=== PATIENT | female | born 1965 | race Caucasian/White ===

== ENCOUNTER 2019-09-05 12:13 | Emergency (ER) | payer MEDICARE, MEDICAID, SELFPAY ==
--- NOTE | ~2019-09-05 | XR_ITS ---
XR chest 1V portable 09/05/2019 12:57 Indication: Redness of breath. Atrial fibrillation. Procedure: AP portable chest Comparison: No prior studies for comparison. Findings: Bibasilar atelectasis/scarring. No acute focal pneumonia, edema, pleural effusion or pneumo thorax. Borderline heart size. No acute osseous abnormality. Impression: 1: Bibasilar atelectasis/scarring. Reviewed, dictated and finalized at location B. ONAL INJURY LEGAL ASSISTANT Impression: 1: Bibasilar atelectasis/scarring.
--- NOTE | 2019-09-05 12:30 | ECG_ITS ---
Measurements Intervals [place] Rate: 74 P: VT: 0 QRS: 40 QRSD: 84 T: 9 QT: 325 QTc: 363 Interpretive Statements ATRIAL FIBRILLATION LOW QRS VOLTAGE IN PRECORDIAL LEADS BASELINE ARTIFACT- II, III, AVR, AVF, V1, V6 ABNORMAL ECG Electronically Signed On 09-05-2019 12:51:17 DISTRIBUTOR PUBLICATIONS by Milan Lopez D.O.
[2019-09-05 12:37] VITALS: BP 135/65; PULSE 83; RESP 20; TEMP 37.2; O2SAT 100
--- NOTE | 2019-09-05 12:47 | ED.GENADULT ---
HPI - General Adult General Chief complaint: Arrhythmia/Palpitations Stated complaint: sob afib Time Seen by Provider: 09/05/19 12:40 Source: patient Mode of arrival: ambulatory Limitations: other ( came by feels safe because of general weakness) History of Present Illness HPI narrative: Courtney is a 53-year-old female patient. She presents to the emergency room with a caregiver. Courtney apparently lives in [place], [place] . her presenting complaint is that her pulse ox was low on a home pulse oximeter. She has a home health nurse who checks her. She was told to go to the ER to have it checked out. In the ER her pulse ox is 100% on room air. Courtney has a complicated medical history. She has history of chronic atrial fibrillation. Her PCP is Dr Marie in [place]. she states that she was in [place] about 10 days ago. She was transferred to [facility] from there. She states that she was there for 1 week. Her Coumadin dosing was adjusted there. She has a slight headache. No history of nausea vomiting. She denies any chest pain at this time. Her pulse rate is 74 at this time. Her blood pressure is 135/65 mmHg her respirations are 20 per minute temperature is 99? F . She denies any cough. There is no history of vomiting or diarrhea. She has no abdominal pain. 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) Location: head ( has mild headache.) Radiation: non-radiation Severity: mild Quality: sharp Pain Consistency: intermittent Relieving factors: other ( Does not have much pain now ) Exacerbating factors: none Associated symptoms: other ( please see HPI narrative) Treatments prior to arrival: none Related Data Home Medications Medication Instructions Recorded Confirmed atorvastatin 40 mg PO DAILY 09/05/19 09/05/19 diazepam 1 mg PO TID 09/05/19 09/05/19 digoxin [Digox] 250 mcg PO DAILY 09/05/19 09/05/19 docusate sodium 100 mg PO DAILY 09/05/19 09/05/19 ergocalciferol (vitamin D2) 50,000 unit PO WEEKLY 09/05/19 09/05/19 hydrocodone-acetaminophen [[place]] 1 tablet PO Q6H PRN 09/05/19 09/05/19 linaclotide 72 mcg PO DAILY 09/05/19 09/05/19 lorazepam 1 mg PO DAILY PRN 09/05/19 09/05/19 pregabalin 300 mg PO BID 09/05/19 09/05/19 tizanidine 2 mg PO Q6-8H 09/05/19 09/05/19 trazodone 50 mg PO HS PRN 09/05/19 09/05/19 varenicline 1 mg PO DAILY 09/05/19 09/05/19 warfarin [Coumadin] 4 mg PO [id number] 09/05/19 09/05/19 warfarin [Coumadin] 5 mg PO QMWF 09/05/19 09/05/19 Allergies Allergy/AdvReac Type Severity Reaction Status Date / Time amoxicillin Allergy Hives Verified 09/05/19 13:25 azithromycin Allergy Hives Verified 09/05/19 13:25 Cephalosporins Allergy Hives Verified 09/05/19 13:25 cyclobenzaprine Allergy Hives Verified 09/05/19 13:25 ketorolac Allergy Hives Verified 09/05/19 13:25 metronidazole Allergy Hives Verified 09/05/19 13:25 morphine Allergy Hives Verified 09/05/19 13:25 Sulfa (Sulfonamide Allergy Hives Verified 09/05/19 13:25 Antibiotics) Tetracyclines Allergy Hives Verified 09/05/19 13:25 tramadol Allergy Hives Verified 09/05/19 13:25 citalopram [From Celexa] AdvReac Unknown Verified 09/05/19 13:25 fluoxetine AdvReac Unknown Verified 09/05/19 13:25 sertraline AdvReac Unknown Verified 09/05/19 13:25 Review of Systems Review of Systems: All systems reviewed & are unremarkable except as noted in HPI and below Constitutional: Constitutional: Reports as per HPI, Denies chills, Denies fever(s) and Reports weakness Eyes: Eyes: Reports as per HPI, Reports no additional eye complaints and Denies change in vision ENT: Reports system reviewed and no additional complaints, except as documented, Denies vertigo, Denies dizziness, Denies epistaxis and Denies sore throat Cardiovascular: Cardiovascular: Reports as per HPI, Reports no additional cardiovascular complaints, Denies chest pain and Denies radiating jaw, neck or arm pain Comments: has history of chronic atrial fibrillation. She is on chronic warfa
[2019-09-05 13:23] LABS: Base Excess ABG -0.3 mmol/L (0-2); Modified Allen's Test Pass; Oxygen Content ABG 14.4 %vol (16.0-22.0); Oxygen Saturation ABG 96.6 % (95-97); Oxyhemoglobin 94.7 % (94-100); PCO2 ABG 33.1 mmHg (35-45); PO2 ABG 87.2 mmHg (80-90); Site Drawn LEFT RADIAL; Total Hemoglobin 10.7 g/dL; pH ABG 7.46 (7.35-7.45)
[2019-09-05 13:24] LABS: Device ROOM AIR
[2019-09-05 13:31] LABS: INR 1.2; Partial Thromboplastin Time 27.2 SEC (22.3-31.6); Prothrombin Time 12.7 Seconds (9.64-11.0)
[2019-09-05 13:33] LABS: Hematocrit 30.3 % (35.0-49.0); Hemoglobin 9.7 g/dL (12.0-15.0); Mean Corpuscular Hemoglobin 28.6 pg (27.0-31.0); Mean Corpuscular Volume 89.4 fL (78.0-102.0); Mean Platelet Volume 10.5 fl (9.2-11.8); Platelet Count Result 193 K/mm3 (150-420); Red Blood Count 3.39 M/mm3 (4.20-5.40); Red Cell Distribution Width 15.6 % (11.6-14.4); White Blood Count 3.8 K/mm3 (4.8-10.8)
[2019-09-05 13:35] LABS: BNP 183 pg/mL (0-100); Lactic Acid 1.1 mmol/L (0.4-2.0)
[2019-09-05 13:47] LABS: Alanine Aminotransferase 14 U/L (14-59); Albumin Level 3.1 g/dL (3.4-5.0); Alkaline Phosphatase 79 U/L (46-116); Anion Gap 12.9 mmol/L (7-16); Aspartate Amino Transferase 15 U/L (15-37); Bilirubin,Total 0.6 mg/dL (0.00-1.00); Blood Urea Nitrogen 10 mg/dL (7-18); CRP 0.9 mg/dL (0.0-0.9); Calcium 8.4 mg/dL (8.5-10.1); Carbon Dioxide 26 mmol/L (21-32); Chloride 106 mmol/L (98-108); Creatine Kinase 38 U/L (26-192); Estimated Glomerular Filt Rate > 60; Glucose 108 mg/dL (70-99); Magnesium 1.7 mg/dL (1.8-2.4); Osmolality Calculated 292 mOsm/kg (285-295); Potassium 3.9 mmol/L (3.5-5.1); Sodium 141 mmol/L (136-145); Thyroid Stimulating Hormone 2.02 uIU/mL (0.36-3.74); Total Protein 6.7 g/dL (6.4-8.2)
[2019-09-05 13:48] LABS: Creatine Kinase MB < 0.50 ng/mL (0.00-5.00); Troponin I < 0.02 ng/mL (0.00-0.056)
[2019-09-05 13:48] LABS: Digoxin 1.6 ng/mL (0.9-2.0)
[2019-09-05 14:05] LABS: Influenza Control Valid (Valid)
[2019-09-05 14:10] LABS: Band Neutrophils Percent 0 % (0-6); Eosinophils Absolute Manual 0.07 K/mm3 (0.02-0.5); Eosinophils Percent Manual 2 % (1-6); Lymphocytes Absolute Manual 1.44 K/mm3 (1.1-4.5); Lymphocytes Percent Manual 38 % (18-44); Monocytes Absolute Manual 0.41 K/mm3 (0.1-0.90); Monocytes Percent Manual 11 % (3-9); Neutrophils Absolute Manual 1.86 K/mm3 (1.7-7.2); Neutrophils Percent Manual 49 % (46-73); Platelet Estimate Adequate (Adequate); Total Cells Counted 100
[2019-09-05 14:13] LABS: Add Urine Microscopic? NO; Appearance Urine Clear (Clear); Bilirubin Urine Negative (Negative); Blood Urine Negative (Negative); Color Urine Yellow (Yellow); Glucose Urine UA Negative (Negative); Ketones Urine Negative (Negative); Leukocyte Esterase Ur Negative LEU/UL (Negative); Nitrate Urine Negative (Negative); Protein Urine Negative (Negative); Specific Grav Ur 1.015 (1.010-1.020); pH Urine 6.5 (5.0-8.0)
[2019-09-05 14:18] LABS: Erythrocyte Sedimentation Rate 41 mm/hr (0-20)
[2019-09-05 14:42] VITALS: BP 105/63
== END 2019-09-05 14:49 | disposition home or self-care (01) ==
PROVIDERS: Emergency Provider Surgery
DX: F41.9 Anxiety disorder, unspecified (principal); I48.91 Unspecified atrial fibrillation; Z79.01 Long term (current) use of anticoagulants; E78.00 Pure hypercholesterolemia, unspecified
CPT/HCPCS: 36415; 36600; 71045; 80053; 80162; 81003; 82550; 82553; 82805; 83605; 83735; 83880; 84443; 84484; 85025; 85610; 85652; 85730; 86140; 87804; 93005; 99283; 99284

== ENCOUNTER 2020-07-20 00:36 | Outpatient (CLI) | payer MEDICARE, MEDICAID, SELFPAY ==
[2020-07-20 18:46] LABS: SARS-CoV-2 RNA PCR Positive
== END 2020-07-20 00:37 | disposition home or self-care (01) ==
LOC: ANHCOVIDDT 00:36
PROVIDERS: Visit Provider Internal Medicine Cardiovascular Disease
DX: Z01.812 Encounter for preprocedural laboratory examination (principal); U07.1 COVID-19
CPT/HCPCS: C9803; U0003; U0005

== ENCOUNTER 2020-09-05 15:00 | Inpatient (IN) | payer MEDICARE, MEDICAID, SELFPAY ==
[2020-09-03 14:48] VITALS: BMI 40.7
[2020-09-04] VITALS (14 sets, daily range): BP systolic 87–122; BP diastolic 49–86; PULSE 36–68; RESP 12–16; TEMP 36.2–36.3; O2SAT 97–100; BMI 41.5
--- NOTE | 2020-09-04 11:30 | ECG_ITS ---
Measurements Intervals [place] Rate: 71 P: [place]: 0 QRS: 57 QRSD: 104 T: -1 QT: 394 QTc: 429 Interpretive Statements ATRIAL FIBRILLATION LOW QRS VOLTAGE- DIFFUSE LEADS BASELINE WANDER- III, V3-V4 ABNORMAL ECG Electronically Signed On 09-04-2020 12:10:10 SCIENCE INSTRUCTOR by Milan Lopez D.O.
--- NOTE | 2020-09-04 12:04 | PM.IMHP ---
H&P: HPI History of Present Illness Date/Time: 09/04/20 12:04 Chief Complaint: persistent atrial fib Narrative: Courtney Soriano is a 54 year old female with persistent and symptomatic atrial fibrillation who is here for elective electrical cardioversion. The patient has had paroxysmal atrial fibrillation for 4 years and this year has had persistent atrial fibrillation, probably for several months if not for a year. She also has trouble with low blood pressure making difficult to manage her AFib which sometimes has high ventricular response rate with the usual medications and digoxin made her feel ill. She was started on amiodarone and warfarin earlier this year and her INRs have been therapeutic recently. INR was 2.3 yesterday. She continues to have problems with KELSEY and fatigue, which she feels is secondary to the atrial fibrillation. She is sometimes short of breath at rest, but complains of significant KELSEY with any activity such as walking across the room. Here with her friend and roommate, Melanie. 04/2020 echo: EF 55-60%, [id number] RV dilatation 06/2020 Lexiscan: Normal perfusion, EF 68%. Fixed anterior septal defect, breast artifact. Review of Systems Constitutional: Constitutional: Reports fatigue, Reports lethargy and Reports weakness Eyes: Eyes: Reports no additional eye complaints ENT: Denies epistaxis Cardiovascular: Cardiovascular: Denies chest pain, Reports pedal edema, Reports leg edema and Reports palpitations Respiratory: Respiratory: Reports dyspnea and Reports dyspnea on exertion Gastrointestinal: Gastrointestinal: Denies abdominal pain and Denies hematemesis Genitourinary: Genitourinary: Denies hematuria Musculoskeletal: Musculoskeletal: Reports no additional musculoskeletal complaints Integumentary/Breasts: Skin/Breast: Denies rash Psychiatric: Psychiatric: Reports anxiety and Reports depression [facility] Past Medical History Medical History (Updated 09/04/20 @ 12:48 by Laine Hester MD) Anticoagulated with warfarin Anxiety Chronic atrial fibrillation GI (gastrointestinal bleed) 11/2019 when INR was greater than 5, transfused Hypercholesterolemia Persistent atrial fibrillation Surgical History Surgical History History of carpal tunnel surgery History of cholecystectomy Family History Family History (Updated 09/05/19 @ 13:03 by Prasanna CarvalhoMD) Mother , mother of some type of cancer No problems noted. Father , father also of some type of cancer No problems noted. Social History Social History (Updated 09/05/19 @ 13:04 by Prasanan CarvalhoMD) Years smoked: 15 Smoking status: Former smoker Tobacco type: cigarettes Smoking end date: 07/06/20 Alcohol intake: former Substance use: never Substance use type: does not use Living arrangements: with family Spiritual care concerns: No Meds Home Medications and Allergies Home Medications Medication Instructions Recorded Confirmed Type atorvastatin 80 mg PO DAILY 09/05/19 09/03/20 History docusate sodium 100 mg PO DAILY 09/05/19 09/03/20 History ergocalciferol (vitamin D2) 50,000 unit PO WEEKLY 09/05/19 09/03/20 History linaclotide 72 mcg PO DAILY 09/05/19 09/03/20 History pregabalin 300 mg PO BID 09/05/19 09/04/20 History tizanidine 2 mg PO Q6-8H 09/05/19 09/03/20 History trazodone 50 mg PO HS PRN 09/05/19 09/03/20 History amiodarone 200 mg PO BID 09/03/20 09/03/20 History dicyclomine 10 mg PO DAILY 09/03/20 09/03/20 History gabapentin 800 mg PO DAILY 09/03/20 09/03/20 History metoprolol tartrate 25 mg PO DAILY 09/03/20 09/04/20 History pantoprazole 40 mg PO DAILY 09/03/20 09/03/20 History promethazine 12.5 mg PO DAILY 09/03/20 09/03/20 History sucralfate 1 g PO DAILY 09/03/20 09/03/20 History warfarin 3 mg PO DAILY 09/03/20 09/04/20 History Allergies Allergy/AdvReac Type Severity R
[2020-09-04 12:07] LABS: Hematocrit 39.5 % (37.0-47.0); Hemoglobin 12.6 g/dL (12.0-15.0); Mean Corpuscular HGB Conc 31.9 g/dl (32-36); Mean Corpuscular Hemoglobin 28.8 pg (26-34); Mean Corpuscular Volume 90.2 fl (80-100); Mean Platelet Volume 10.8 fl (7.4-10.4); Platelet Count Result 213 k/mm3 (150-375); Red Blood Count 4.38 M/mm3 (4.2-5.4); Red Cell Distribution Width 18.3 % (11.5-14.5); White Blood Count 5.1 K/mm3 (4.5-10.0)
[2020-09-04 12:20] LABS: Anion Gap 5 mmol/L (8-16); Blood Urea Nitrogen 14 mg/dL (7-17); Calcium 9.5 mg/dL (8.4-10.2); Carbon Dioxide 31 mmol/L (22-30); Chloride 105 mmol/L (98-107); Estimated CRCL calculation 85 ml/min; Estimated Glomerular Filt Rate > 60; Glucose 99 mg/dL (65-105); Magnesium 1.8 mg/dL (1.6-2.3); Potassium 4.3 mmol/L (3.4-5.0); Sodium 141 mmol/L (137-145)
--- NOTE | 2020-09-04 12:53 | WPDANESEPPF ---
Anes - Initial Pre Proc Eval Procedure: Operation Date: 09/04/20 13:00 Proposed Procedures p Electrical Cardioversion - Laine Hester MD Date/Time: 09/04/20 12:53 Surgeon: Laine Hester MD Pre Op Diagnosis: A-Fib Patient Data Age: 54 Gender: F Height: 5 ft 7 in Weight: 120.5 kg Last Vital Signs Temp 97.2 F L 09/04/20 12:13 Pulse 68 09/04/20 12:13 Resp 16 09/04/20 12:13 BP 121/86 09/04/20 12:13 Pulse Ox 99 09/04/20 12:13 Allergies Allergy/AdvReac Type Severity Reaction Status Date / Time amoxicillin Allergy Hives Verified 09/05/19 13:25 azithromycin Allergy Hives Verified 09/05/19 13:25 Cephalosporins Allergy Hives Verified 09/05/19 13:25 cyclobenzaprine Allergy Hives Verified 09/05/19 13:25 ketorolac Allergy Hives Verified 09/05/19 13:25 metronidazole Allergy Hives Verified 09/05/19 13:25 morphine Allergy Hives Verified 09/05/19 13:25 Sulfa (Sulfonamide Allergy Hives Verified 09/05/19 13:25 Antibiotics) Tetracyclines Allergy Hives Verified 09/05/19 13:25 tramadol Allergy Hives Verified 09/05/19 13:25 citalopram [From Celexa] AdvReac Unknown Verified 09/04/20 12:40 fluoxetine AdvReac Unknown Verified 09/04/20 12:40 sertraline AdvReac Unknown Verified 09/04/20 12:40 Home Medications Medication Instructions Recorded Confirmed Type atorvastatin 80 mg PO DAILY 09/05/19 09/03/20 History docusate sodium 100 mg PO DAILY 09/05/19 09/03/20 History ergocalciferol (vitamin D2) 50,000 unit PO WEEKLY 09/05/19 09/03/20 History linaclotide 72 mcg PO DAILY 09/05/19 09/03/20 History pregabalin 300 mg PO BID 09/05/19 09/04/20 History tizanidine 2 mg PO Q6-8H 09/05/19 09/03/20 History trazodone 50 mg PO HS PRN 09/05/19 09/03/20 History amiodarone 200 mg PO BID 09/03/20 09/03/20 History dicyclomine 10 mg PO DAILY 09/03/20 09/03/20 History gabapentin 800 mg PO DAILY 09/03/20 09/03/20 History metoprolol tartrate 25 mg PO DAILY 09/03/20 09/04/20 History pantoprazole 40 mg PO DAILY 09/03/20 09/03/20 History promethazine 12.5 mg PO DAILY 09/03/20 09/03/20 History sucralfate 1 g PO DAILY 09/03/20 09/03/20 History warfarin 3 mg PO DAILY 09/03/20 09/04/20 History Laboratory Tests 09/04/20 09/04/20 11:56 11:56 WBC 5.1 K/mm3 K/mm3 (4.5-10.0) RBC 4.38 M/mm3 M/mm3 (4.2-5.4) Hgb 12.6 g/dL g/dL (12.0-15.0) Hct 39.5 % % (37.0-47.0) MCV 90.2 fl fl (80-100) MCH 28.8 pg pg (26-34) MCHC 31.9 g/dl L g/dl (32-36) RDW 18.3 % H % (11.5-14.5) Plt Count 213 k/mm3 k/mm3 (150-375) MPV 10.8 fl H fl (7.4-10.4) Sodium 141 mmol/L mmol/L (137-145) Potassium 4.3 mmol/L mmol/L (3.4-5.0) Chloride 105 mmol/L mmol/L (98-107) Carbon Dioxide 31 mmol/L H mmol/L (22-30) Anion Gap 5 mmol/L L mmol/L (8-16) BUN 14 mg/dL mg/dL (7-17) Creatinine 0.90 mg/dL mg/dL (0.7-1.0) Estim Creat Clear Calc 85 ml/min ml/min Estimated GFR > 60 (59 - ) Glucose 99 mg/dL mg/dL (65-105) Calcium 9.5 mg/dL mg/dL (8.4-10.2) Magnesium 1.8 mg/dL mg/dL (1.6-2.3) Patient hx anesthesia problems: none Family hx anesthesia problems: none [facility] Past Medical History Medical History (Updated 09/04/20 @ 12:48 by Laine Hester MD) Anticoagulated with warfarin Anxiety Chronic atrial fibrillation GI (gastrointestinal bleed) 11/2019 when INR was greater than 5, transfused Hypercholesterolemia Persistent atrial fibrillation Surgical History Surgical History History of carpal tunnel surgery History of cholecystectomy Family History Family History (Updated 09/05/19 @ 13:03 by Prasanna CarvalhoMD) Mother , mother of some type of cancer No problems noted. Father , father also of some type of cancer No problems noted. Social Histor
--- NOTE | 2020-09-04 12:53 | WPDMODSED ---
Moderate Sedation Note-Pt Data Patient Data Diagnosis: Persistent atrial fibrillation Present Complaint: KELSEY and persistent atrial fibrillation Low blood pressure Chronic anticoagulation Chronic amiodarone use Procedure to be performed/Plan: Anesthesia with help of anesthesiology Elective electrical cardioversion Allergies Allergy/AdvReac Type Severity Reaction Status Date / Time amoxicillin Allergy Hives Verified 09/05/19 13:25 azithromycin Allergy Hives Verified 09/05/19 13:25 Cephalosporins Allergy Hives Verified 09/05/19 13:25 cyclobenzaprine Allergy Hives Verified 09/05/19 13:25 ketorolac Allergy Hives Verified 09/05/19 13:25 metronidazole Allergy Hives Verified 09/05/19 13:25 morphine Allergy Hives Verified 09/05/19 13:25 Sulfa (Sulfonamide Allergy Hives Verified 09/05/19 13:25 Antibiotics) Tetracyclines Allergy Hives Verified 09/05/19 13:25 tramadol Allergy Hives Verified 09/05/19 13:25 citalopram [From Celexa] AdvReac Unknown Verified 09/04/20 12:40 fluoxetine AdvReac Unknown Verified 09/04/20 12:40 sertraline AdvReac Unknown Verified 09/04/20 12:40 Home Medications Medication Instructions Recorded Confirmed Type atorvastatin 80 mg PO DAILY 09/05/19 09/03/20 History docusate sodium 100 mg PO DAILY 09/05/19 09/03/20 History ergocalciferol (vitamin D2) 50,000 unit PO WEEKLY 09/05/19 09/03/20 History linaclotide 72 mcg PO DAILY 09/05/19 09/03/20 History pregabalin 300 mg PO BID 09/05/19 09/04/20 History tizanidine 2 mg PO Q6-8H 09/05/19 09/03/20 History trazodone 50 mg PO HS PRN 09/05/19 09/03/20 History amiodarone 200 mg PO BID 09/03/20 09/03/20 History dicyclomine 10 mg PO DAILY 09/03/20 09/03/20 History gabapentin 800 mg PO DAILY 09/03/20 09/03/20 History metoprolol tartrate 25 mg PO DAILY 09/03/20 09/04/20 History pantoprazole 40 mg PO DAILY 09/03/20 09/03/20 History promethazine 12.5 mg PO DAILY 09/03/20 09/03/20 History sucralfate 1 g PO DAILY 09/03/20 09/03/20 History warfarin 3 mg PO DAILY 09/03/20 09/04/20 History Current Medications: Active Medications Sodium Chloride (Normal Saline Iv) 1,000 mls @ 30 mls/hr IV CONT .Q24H SY Sedation/Anesthesia: No previous sedation/anesthesia problems (including family history). [facility] Past Medical History Medical History (Updated 09/04/20 @ 12:48 by Laine Hester MD) Anticoagulated with warfarin Anxiety Chronic atrial fibrillation GI (gastrointestinal bleed) 11/2019 when INR was greater than 5, transfused Hypercholesterolemia Persistent atrial fibrillation Surgical History Surgical History History of carpal tunnel surgery History of cholecystectomy Family History Family History (Updated 09/05/19 @ 13:03 by Prasanna CarvalhoMD) Mother , mother of some type of cancer No problems noted. Father , father also of some type of cancer No problems noted. Social History Social History (Updated 09/05/19 @ 13:04 by Prasanna TrevinoMD) Years smoked: 15 Smoking status: Former smoker Tobacco type: cigarettes Smoking end date: 07/06/20 Alcohol intake: former Substance use: never Substance use type: does not use Living arrangements: with family Spiritual care concerns: No Mod Sed Physical Exam Physical Exam Pre Procedural Exam: Normal: Appearance (Anxious lady no physical distress), Eyes, Ears, Nose, Neck, Throat, Airway, Lungs, Heart Size, Heart Rate, Neuro Exam, Abdomen, Extremities and Skin and Variation: Heart Rhythm (Irregular) Hours since solid foods: 12 Hours since liquid intake: 12 Internal Medicine - PN: Obj Da Vital Signs Vital Signs: Vital Signs - 24 hr 09/04/20 12:13 Temperature 97.2 F L Pulse Rate 68 Respiratory Rate 16 Blood Pressure 121/86 Pulse Oximetry 99 Meds/Results Medications: Active Medications Generic Name Dose Route Start Last Admin Trade Name Freq PRN Reason St
--- NOTE | 2020-09-04 13:07 | ECG_ITS ---
Measurements Intervals [place] Rate: 38 P: 31 [place]: 189 QRS: 58 QRSD: 88 T: 27 QT: 513 QTc: 412 Interpretive Statements SINUS BRADYCARDIA LOW QRS VOLTAGE- DIFFUSE LEADS BORDERLINE T WAVE ABNORMALITY- ANT/INF LEADS ABNORMAL ECG Electronically Signed On 09-04-2020 13:27:19 PLAYGROUND DIRECTOR by Milan Lopez D.O.
--- NOTE | 2020-09-04 13:23 | PM.OP ---
Procedure Note - Brief Procedure Note - Brief Date of procedure: 09/04/20 Pre-op diagnosis: A-Fib Post-op diagnosis: same Procedure performed: Elective electrical cardioversion with anesthesia support Description of procedure: Pt cardioverted with 200 J to siinus marlen HR 38-40 BPM. Anesthesia: MAC Surgeon: Laine Hester MD Complications: No immediate complications Condition: stable Disposition: observation Findings: Successful cardioversion to sinus bradycardia.
--- NOTE | 2020-09-04 13:25 | PM.PROC ---
Procedure Note - Detailed Date of procedure: 09/04/20 Pre-op diagnosis: A-Fib Post-op diagnosis: same Procedure performed: Elective electrical cardioversion with anesthesia support Description of procedure: Sedation: See anesthesia flow sheets Cardioversion: After informed consent and the above conscious sedation, the patient underwent elective electrical synchronized cardioversion with to whom joules of biphasic energy and converted to normal sinus rhythm. heart rate 38-40 beats per minute.There were no complications. Anesthesia: MAC Surgeon: Laine Hester MD Complications: No immediate complications Condition: stable Disposition: observation Findings: Successful cardioversion from atrial fibrillation with a controlled rate to sinus bradycardia. Will observe patient for couple of hours this afternoon and probably reduce the amiodarone dose from 400 mg daily to 200 mg daily. 09/04/2020 15:09 pm Addendum: Patient complains of sharp left-sided pleuritic positional chest discomfort that radiates to the back. She does have chest wall tenderness along the left parasternal area and left anterior ribs well as the left periscapular area. She was given some Tylenol but vomited of. In addition her blood pressure dropped into the 80s; she does tend to run in the 90s sometimes. She was given saline 200 cc with improvement. However she remains bradycardic with heart rate of 38-low 40s. With all this in mind, recommend she stay overnight for observation. Will try some IV Tylenol. She does tell me she is not allergic to Dilaudid, [place] and fentanyl. Will also hold amiodarone and try a dose of atropine. 09/04/2020 17:46 PM Patient continues to have the same chest pain, did not respond to Tylenol. Atropine did not affect the heart rate much, which runs in the low 40s. IV fluids help the blood pressure. Will keep patient overnight for observation and check a chest x-ray tomorrow.
--- NOTE | 2020-09-04 13:25 | PC.NURSE ---
1318- Pt C/O pain under left breast that radiates to back, describes as stabbing pain. Dr. Hester here and made aware. Dr. Hester assessed pt and said to continue to monitor. No other new orders noted.
[2020-09-04] MEDS: ACETAMINOPHEN 500 MG TABLET 1000 MG PO (14:04)
[2020-09-04] MEDS: ONDANSETRON INJ 4 MG/2 ML VIAL IV PUSH (14:33)
[2020-09-04] MEDS: SODIUM CHLORIDE 0.9% IV 200 ML 999 ML IV CONT (14:35)
--- NOTE | 2020-09-04 14:48 | SUR.PHASEII ---
1405 - Pt continues to C/O pain in chest,rating 8/10. Dr. Hester called and notified that pain continues. Orders for tylenol, Tylenolgiven per order. Dr. Hester will come to assess patient.
--- NOTE | 2020-09-04 14:51 | SUR.PHASEII ---
1410- [place] here to assess pt,notified of hypotension, order noted to start fluid bolus.
--- NOTE | 2020-09-04 14:52 | SUR.PHASEII ---
1415- Starting fluid bolus when IV noted to be clotted off. Attempted to start new IV X 2 unsuccessful. IV therapy nurse called.
--- NOTE | 2020-09-04 14:54 | SUR.PHASEII ---
1418- Pt vomited small amount, Dr. Hester notified and orders noted for Zofran, waiting on IV therapy nurse to start IV.
[2020-09-04] MEDS: ATROPINE SULFATE 1 MG/10 ML SYRINGE 0.5 MG IV PUSH (15:11)
--- NOTE | 2020-09-04 15:15 | SUR.PHASEII ---
came to assess pt, stated that will admit to over night tonight for observation. Orders noted
--- NOTE | 2020-09-04 16:37 | PC.NURSE ---
1545- Patient sleeping comfortably.NAD noted.
--- NOTE | 2020-09-04 17:30 | PC.NURSE ---
DR. JAIMES HERE TO CHECK ON PT. PT. C/O SHARP, STABBING PAIN OF 4/10 THROUGH LEFT CHEST TO BACK. DR. JAIMES NOTIFIED. WARM COMPRESS TO CHEST AREA. ALSO STRETCHED AND CHANGED POSITIONED. CONDITION UPDATE GIVEN.
[2020-09-04 17:34] LABS: INR 2.2; Prothrombin Time 24.6 Seconds (11.1-14.7)
[2020-09-04] MEDS: GABAPENTIN 400 MG CAPSULE 800 MG PO (20:02)
[2020-09-05] VITALS (14 sets, daily range): BP systolic 84–115; BP diastolic 17–69; PULSE 38–46; RESP 13–18; TEMP 36.1–37.1; O2SAT 95–100
--- NOTE | ~2020-09-05 | XR_ITS ---
EXAMINATION: XR chest 1V portable DATE: 09/05/2020 06:02 INDICATION: Chest pain. TECHNIQUE: A single frontal view of the chest was obtained. COMPARISON: Chest single view 09/06/2019 FINDINGS: The patient is rotated to her left. There are mild airspace opacities in right lower lung z one and left midlung zone. No pleural effusion or pneumothorax. The heart size is normal. There is a moderate-sized hiatal hernia. IMPRESSION: 1. Mild airspace opacities in right lower lung zone and left midlung zone, consistent with atelectasi s versus pneumonia. 2. Moderate-sized hiatal hernia. Reviewed, dictated and finalized at location A. D YEAST SUPERVISOR IMPRESSION: 1. Mild airspace opacities in right lower lung zone and left midlung zone, cons istent with atelectasis versus pneumonia. 2. Moderate-sized hiatal hernia.
[2020-09-05 04:41] LABS: INR 2.1; Prothrombin Time 24.2 Seconds (11.1-14.7)
[2020-09-05] MEDS: ACETAMINOPHEN 500 MG TABLET 1000 MG PO (06:07)
[2020-09-05] MEDS: SUCRALFATE 1 GM TABLET PO ×3 (06:07→17:13)
[2020-09-05] MEDS: ATORVASTATIN 40 MG TABLET 80 MG PO (08:24)
[2020-09-05] MEDS: PANTOPRAZOLE 40 MG TABLET PO (08:26)
[2020-09-05] MEDS: DICYCLOMINE HCL 10 MG CAPSULE PO (08:26)
[2020-09-05] MEDS: DOCUSATE SODIUM 100 MG CAPSULE PO (08:26)
[2020-09-05] MEDS: PREGABALIN (*CRX) 75 MG CAPSULE 300 MG PO ×2 (08:28→17:13)
--- NOTE | 2020-09-05 08:45 | PC.NURSE ---
PT. STATES SHE TAKES WARFARIN 3MG PO DAILY EXCEPT ON WEDNESDAYS. VERIFIED THIS W/ PHARMACY INFORMATION IN DATABASE. NO WARFARIN DOSE GIVEN THIS AM. HELD METOPROLOL DOSE THIS AM FOR HR OF 39-40. PT. IS AWARE AND AGREEABLE.
--- NOTE | 2020-09-05 10:45 | PC.NURSE ---
DR. JAIMES HERE TO SEE PT. CONDITION UPDATE GIVEN. AT SAME TIME, PT. C/O NAUSEA. ORDER FOR ZOFRAN 4MG IV X 1 RECEIVED; MED GIVEN. DR. JAIMES TO REVISIT THIS AFTERNOON TO REEVALUATE PT'S VS AND NAUSEA FOR POSSIBLE DISCHARGE HOME.
[2020-09-05] MEDS: ONDANSETRON INJ 4 MG/2 ML VIAL IV PUSH ×2 (10:46→12:38)
--- NOTE | 2020-09-05 12:29 | PC.NURSE ---
Patient continues to complain of nausea. No active vomiting. Pt does state that she take Zofran or nausea at home. Do not see active medication on home med list. Unsure if this is the patient's baseline. Dr. Hester made aware of patient's condition. Orders received for additional dose of IV Zofran.
--- NOTE | 2020-09-05 13:00 | PC.NURSE ---
Patient reports some improvement in nausea after receiving IV Zofran. Appears to be resting quietly in bed. Does complain of severe headache and left arm pain which is continuous since after the cardioversion yesterday afternoon. Declines medication at this time. Pt also states that her teeth feel numb . Patient's facial symmetry is equal, no facial droop. Equal and strong machinist general. No arm drift noted. Will make Dr. Hester aware when she comes to reassess the patient.
--- NOTE | 2020-09-05 13:36 | PC.NURSE ---
Patient report give to Jose Wilson RN. All questions answered and care transferred.
--- NOTE | 2020-09-05 14:27 | PM.PNCARD ---
Progress Note: A&P Assessment and Plan (1) Bradycardia: Code(s): R00.1 - Bradycardia, unspecified Status: Acute Assessment and Plan: Patient was cardioverted yesterday but has developed bradycardia with heart rates in the 38-45 beat per minute range, using more toward 38 beats per minute. We have held her amiodarone and metoprolol open disease some improvement of the heart rate in the next few days. She seems relatively asymptomatic but I am concerned that she might have dizziness and a fall if we send her home with this degree of bradycardia. 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 (3) Chest wall pain: Code(s): R07.89 - Other chest pain Status: Acute Assessment and Plan: Developed chest wall pain after the cardioversion which is similar to the chest pain she had a month ago. This appears to be musculoskeletal. With her multiple allergies there is not a lot of options for her. Continue Tylenol and p.r.n. narcotics. Patient was reassured she was not having a heart attack. Chest x-ray did not suggest any pneumothorax or significant pathology; I doubt she has pneumonia. Says Flexeril helps at home; hesitant to resume here 2nd bradycardia. will also hold tizanadine since this has been associated w/ badycardia. Symptomatic tx w/ warm compresses, Tylenol (4) Nausea: Code(s): R11.0 - Nausea Status: Acute Assessment and Plan: Has intermittent trouble with nausea at home, worse now. I do not know if this is a nonspecific reaction to the bradycardia or fits a continuation of her usual problems. (5) Headache: Code(s): R51.9 - Headache, unspecified Status: Acute Assessment and Plan: Headache today, again, I do not know if this is a nonspecific reaction to the bradycardia or fits a continuation of her usual problems. (6) Anxiety: Code(s): F41.9 - Anxiety disorder, unspecified Status: Acute Assessment and Plan: Patient has a lot of anxiety and this augments some of her symptoms I believe. Subjective Date/time seen: 09/05/20 14:27 Interval history: Follow-up for post cardioversion bradycardia, chest pain Date of service 09/05/2020: Patient continues to have knife like sharp chest pain from the left chest radiating through to the scapula. She thinks this is from her heart beating her chest so hard with AFib. She now tells me she was hospitalized a month ago for similar discomfort at outside hospital, diagnosed with chest wall pain and discharged with 10-15 tablets of Glendo. She also has been having some nausea today, a little more than usual (she takes Zofran p.r.n. at home). She also has a headache. She was worried this was a TIA. She complained of numbness of her teeth and mouth bilaterally which was transient and was worried she was having a TIA. Nurses tell me she gets back and forth to the bathroom fairly well with no dizziness. Review of Systems Constitutional: Constitutional: Reports fatigue and Reports weakness ENT: Denies nasal congestion Cardiovascular: Cardiovascular: Reports chest pain, Denies pedal edema and Denies leg edema Respiratory: Respiratory: Denies dyspnea and Denies dyspnea on exertion Gastrointestinal: Gastrointestinal: Reports nausea and Reports vomiting Genitourinary: Genitourinary: Denies hematuria Musculoskeletal: Musculoskeletal: Reports myalgias Integumentary/Breasts: Skin/Breast: Denies rash Neurologic: Denies confusion Psychiatric: Psychiatric: Denies behavioral changes Exam Const: General: comfortable (But anxious) and no acute distress HENMT: General nose exam: no epistaxis Mouth: Yes moist mucous
[2020-09-05] MEDS: LORazepam (*CRX) 0.5 MG TABLET PO (17:13)
[2020-09-05] MEDS: PROMETHAZINE HCL 12.5 MG TABLET PO (17:13)
[2020-09-05] MEDS: HYDROcodone/acetaminophen (*CRX) 5-325 MG TABLET 1 TAB PO (17:14)
--- NOTE | 2020-09-05 17:21 | PC.NURSE ---
1715-pt requesting flexeril for her muscle cramps. Informed by MD that these medications could cause significant bradycardia. Stopped order for MD and told to give [place] and Ativan for muscle and pain relief. Carried out per order.Pt resting quietly. Remains bradycardic. Will continue to monitor.
[2020-09-05] MEDS: GABAPENTIN 400 MG CAPSULE 800 MG PO (20:05)
[2020-09-05] MEDS: traZODone HCL 50 MG TABLET PO (20:08)
[2020-09-06] VITALS (7 sets, daily range): BP systolic 110–120; BP diastolic 57–80; PULSE 38–47; RESP 15–18; O2SAT 97–98
[2020-09-06] MEDS: HYDROcodone/acetaminophen (*CRX) 5-325 MG TABLET 1 TAB PO ×2 (04:11→12:03)
[2020-09-06 04:39] LABS: INR 2.1; Prothrombin Time 24.1 Seconds (11.1-14.7)
[2020-09-06] MEDS: SUCRALFATE 1 GM TABLET PO ×2 (06:32→12:00)
[2020-09-06] MEDS: LEVOTHYROXINE SODIUM 75 MCG TABLET PO (06:32)
[2020-09-06] MEDS: ATORVASTATIN 40 MG TABLET 80 MG PO (08:56)
[2020-09-06] MEDS: PROMETHAZINE HCL 12.5 MG TABLET PO (08:56)
[2020-09-06] MEDS: DICYCLOMINE HCL 10 MG CAPSULE PO (08:57)
[2020-09-06] MEDS: WARFARIN (*PBKC) 3 MG TABLET PO (08:57)
[2020-09-06] MEDS: DOCUSATE SODIUM 100 MG CAPSULE PO (08:57)
[2020-09-06] MEDS: PANTOPRAZOLE 40 MG TABLET PO (08:57)
[2020-09-06] MEDS: PREGABALIN (*CRX) 75 MG CAPSULE 300 MG PO (08:57)
[2020-09-06] MEDS: WARFARIN (*PBKC) 1 MG TABLET PO (12:00)
--- NOTE | 2020-09-06 15:24 | PC.NURSE ---
1400-pt given D/C orders and instructions. Questions answered and verbalized understanding. AOx4. Taken via wheelchair to waiting vehicle. No distress noted or verbalized at time of departure.
--- NOTE | 2020-09-06 19:46 | PM.DS ---
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 She has been adequately anticoagulated with warfarin and was admitted for elective electrical cardioversion. She had a successful cardioversion with assistance from Anesthesia, but converted to a sinus bradycardia heart rate 38-40 beats per minute. Her amiodarone 400 mg daily (I believe she had been instructed to reduce it to 200 mg daily recently but did not) and metoprolol 25 mg b.i.d. were discontinued. She was kept for an additional 2 nights to make sure the bradycardia resolved. On discharge her heart rate was running 40-50s and she was able to ambulate with no particular dizziness or cardiac problems. She was instructed to call us on Thursday and report her heart rate. We may resume her amiodarone at 200 mg daily for heart rate has improved significantly. Her INR was on the low end of normal at 2.1, and we continued her usual dose of warfarin which was 3 mg daily but skipping Wednesdays. however, since I had stopped her amiodarone, her INR will likely fall, and particularly after cardioversion this is undesirable as it puts her at increased risk of cardioembolic events. Patient was reluctant to change her warfarin but after discussion she agreed to change the warfarin to: 3 mg every day except for 4 mg on and Mondays. She was instructed to get an INR in 1 week In addition, the patient finds it difficult to get INRs. She does have a home INR machine but cannot use it, and has lost the phone number for the INR service. She does express interest in a NOAC, which is a great idea, if her insurance covers it. However, I am reluctant to switch right away, immediately after cardioversion. Hopefully we can make a switch in a few weeks. The patient also had multiple other problems. She developed severe left-sided chest pain with chest wall tenderness. No obvious injury and chest x-ray was fairly unremarkable ( I did not think she had pneumonia ). On close questioning she has had chest wall pain off and on for while, then evaluated in the emergency rooms, and provided with [employer] for this. Tylenol was provided. By discharge she certainly appeared a lot less distress although she still said she was having chest pain and she said she will just have to live with it as it is a chronic intermittent problem. She also developed nausea and vomiting of uncertain etiology but she has this at home and takes Zofran p.r.n. for this which we provided. She had a headache and was provided Tylenol. She has a lot of anxiety. She has muscle spasms. I did hold off on her tizanidine because they can contribute to bradycardia. Status at Discharge Cognitive/behavioral status at discharge: At baseline Functional status at discharge: independent ambulation Overall status a
== END 2020-09-06 14:00 | disposition home or self-care (01) | DRG 309 ==
LOC: ANHCATHLAB 09-11 07:49 → ANHCPC 09-11 07:49
PROVIDERS: Admitting Provider Internal Medicine Cardiovascular Disease; Visit Provider Internal Medicine Cardiovascular Disease
PROC: 5A2204Z Restoration of Cardiac Rhythm, Single (ICD-10-PCS; principal; 2020-09-04 13:00)
DX: I48.19 Other persistent atrial fibrillation (principal); Z68.41 Body mass index [BMI] 40.0-44.9, adult; Z79.01 Long term (current) use of anticoagulants; F41.9 Anxiety disorder, unspecified; R00.1 Bradycardia, unspecified; E66.01 Morbid (severe) obesity due to excess calories; R07.89 Other chest pain; R51.9 Headache, unspecified; R11.0 Nausea; Z90.49 Acquired absence of other specified parts of digestive tract; Z87.891 Personal history of nicotine dependence
CPT/HCPCS: 36415; 71045; 80048; 83735; 85027; 85610; 92960; 93005; A9270; J0131; J0461; J2405; J2704; J7040

== ENCOUNTER 2020-09-17 12:21 | Outpatient (RCR) | payer MEDICARE, MEDICAID, SELFPAY ==
[2020-09-17 13:06] LABS: INR 2.3; Prothrombin Time 25.8 Seconds (11.1-14.7)
== END 2020-12-16 23:59 | disposition home or self-care (01) ==
LOC: ANHLAB 12:21
PROVIDERS: Visit Provider Internal Medicine Cardiovascular Disease
DX: Z51.81 Encounter for therapeutic drug level monitoring (principal); I48.19 Other persistent atrial fibrillation; Z79.01 Long term (current) use of anticoagulants
CPT/HCPCS: 36415; 85610

== ENCOUNTER 2021-08-21 11:53 | Outpatient (RCR) | payer OTHER, SELFPAY ==
[2021-08-21 12:32] LABS: INR 2.1; Prothrombin Time 22.9 Seconds (11.1-14.7)
== END 2021-11-19 23:59 | disposition home or self-care (01) ==
LOC: ANHLAB 11:53
PROVIDERS: Visit Provider Internal Medicine Cardiovascular Disease
DX: Z51.81 Encounter for therapeutic drug level monitoring (principal); Z79.01 Long term (current) use of anticoagulants
CPT/HCPCS: 36415; 85610

== ENCOUNTER 2022-03-17 13:31 | Outpatient (CLI) | payer OTHER, SELFPAY ==
--- NOTE | 2022-03-17 13:43 | ECG_ITS ---
Measurements Intervals [place] Rate: 112 P: [place]: 0 QRS: 70 QRSD: 88 T: 41 QT: 327 QTc: 448 Interpretive Statements ATRIAL FIBRILLATION WITH RAPID VENTRICULAR RESPONSE LOW QRS VOLTAGE IN PRECORDIAL LEADS ABNORMAL ECG COMPARED TO ECG 09/04/2020 13:11:01 ATRIAL FIBRILLATION NOW PRESENT Electronically Signed On 03-17-2022 14:29:58 CDT by Milan Lopez D.O.
== END 2022-03-17 13:32 | disposition home or self-care (01) ==
LOC: CHSCARD 13:34
PROVIDERS: Visit Provider Internal Medicine Cardiovascular Disease
DX: I48.19 Other persistent atrial fibrillation (principal)
CPT/HCPCS: 93005

== ENCOUNTER 2022-03-27 00:44 | Day surgery (SDC) | payer OTHER, SELFPAY ==
[2022-03-26 14:47] VITALS: BMI 41.9
[2022-03-27] VITALS (7 sets, daily range): BP systolic 112–134; BP diastolic 78–92; PULSE 62–111; RESP 15–27; TEMP 36.4; O2SAT 93–97; BMI 41.9
--- NOTE | 2022-03-27 | ECHO_ITS ---
Patient Info Name: Courtney Soriano Age: 56 years : 1965 Gender: Female Ht: 67 in Wt: 267 lbs BSA: 2.45 m2 HR: 154 bpm Exam Date: 03/27/2022 11:25 AM Exam Location: [facility] Patient Status: Outpatient Admit Date: 03/27/2022 Staff Ordering Physician: Milan Lopez DO Plaster Machine Operator: Grupo Wooten RDCS, RT Attending Provider: Milan Lopez DO Referring Physician: John WHELAN; Exam Type: CA echo transesophageal Study Info Indications I48.1 - Persistent atrial fibrillation Complete two-dimensional, color flow and Doppler transesophageal study is performed. Procedure Details Risks/benefits/alternative to DENVER discuss with patient and she is agreeable to procedure. Sedated as per anesthesia. DENVER probe advanced into esophagus without incident. Multiple images obtained at various levels in esophagus. Agitated saline administered x 1. DENVER withdrawn and no blood noted on DENVER probe tip. Patient tolderated procedure well with no complications. Summary 1. Left ventricular chamber dimension is normal. 2. Left ventricular systolic function is normal with an ejection fraction of 60-65% by visual estimation. 3. Left atrial chamber dimension is severely enlarged. 4. There is mild mitral valve regurgitation. 5. There is mild tricuspid valve regurgitation. Left Ventricle Left ventricular systolic function is normal with an ejection fraction of 60-65% by visual estimation. The left ventricular diastolic function is indeterminate as this was not assessed. Left ventricular chamber dimension is normal. Right Ventricle Right ventricular chamber dimension is normal. Right ventricular systolic function is normal. Left Atria Left atrial chamber dimension is severely enlarged. Right Atria Right atrial chamber dimension is normal. Atrial Septum Agitated saline injection which opacified right sided cardiac chanbers without shunt to left sided cardiac chambers. Intact interatrial septum visualized by 2D, color flow and agitated saline imaging. Atrial Appendage There is no thrombus visualized in the left atrial appendage. Aortic Valve The aortic valve is trileaflet. There is no aortic valve stenosis. There is no aortic valve regurgitation. Pulmonic Valve There is no pulmonic regurgitation. Mitral Valve There is no mitral valve stenosis. There is mild mitral valve regurgitation. Tricuspid Valve RVSP is not calculated. There is mild tricuspid valve regurgitation. Pericardium/Pleural There is no pericardial effusion. Inferior Vena Cava Inferior vena cava is not well visualized. Aorta The aortic root size at the sinus of Valsalva is normal. Report Signatures
--- NOTE | 2022-03-27 09:30 | ECG_ITS ---
Measurements Intervals [place] Rate: 87 P: 86 [place]: 164 QRS: 81 QRSD: 98 T: 0 QT: 378 QTc: 457 Interpretive Statements SINUS RHYTHM LOW QRS VOLTAGE- DIFFUSE LEADS BORDERLINE ST-T WAVE ABNORMALITY- ANTEROLAT/INF LEADS BORDERLINE ECG COMPARED TO ECG 03/27/2022 10:22:39 SINUS RHYTHM NOW PRESENT Electronically Signed On 03-27-2022 12:16:04 CDT by Milan Lopez D.O.
--- NOTE | 2022-03-27 10:48 | SUR.PREOP ---
this rn called and spoke with lab about pending bmp. was informed that the processor is down and no eta for labs to be processed. notified Dr Lopez, ok to proceed with ellen/cv without lab values.
[2022-03-27 10:58] LABS: Anion Gap 9 mmol/L (8-16); Blood Urea Nitrogen 13 mg/dL (7-17); Calcium 9.3 mg/dL (8.4-10.2); Carbon Dioxide 27 mmol/L (22-30); Chloride 103 mmol/L (98-107); Estimated CRCL calculation 106 ml/min; Estimated Glomerular Filt Rate > 60; Glucose 95 mg/dL (65-110); Magnesium 1.9 mg/dL (1.6-2.3); Potassium 4.2 mmol/L (3.4-5.0); Sodium 139 mmol/L (137-145)
--- NOTE | 2022-03-27 11:07 | WPDANESEPPF ---
Anes - Initial Pre Proc Eval Procedure: Operation Date: 03/27/22 11:00 Proposed Procedures p Trans Esophageal Echo DENVER - Milan Lopez DO s Electrical Cardioversion - Milan Lopez DO Date/Time: 03/27/22 11:07 Surgeon: Milan Lopez DO Pre Op Diagnosis: a-fib Patient Data Age: 56 Gender: F Height: 1.7 m Weight: 121.4 kg Last Vital Signs Temp 97.5 F L 03/27/22 10:08 Pulse 111 H 03/27/22 10:08 Resp 23 H 03/27/22 10:08 BP 115/85 03/27/22 10:08 Pulse Ox 97 03/27/22 10:08 O2 Del Method Room Air 03/27/22 10:08 Allergies Allergy/AdvReac Type Severity Reaction Status Date / Time amoxicillin Allergy Hives Verified 03/26/22 17:22 azithromycin Allergy Hives Verified 03/26/22 17:22 Cephalosporins Allergy Hives Verified 03/26/22 17:22 citalopram Allergy Hives Verified 03/26/22 17:22 cyclobenzaprine Allergy Hives Verified 03/26/22 17:22 fluoxetine Allergy Hives Verified 03/26/22 17:22 metronidazole Allergy Hives Verified 03/26/22 17:22 sertraline Allergy Hives Verified 03/26/22 17:22 Sulfa (Sulfonamide Allergy Hives Verified 03/26/22 17:22 Antibiotics) Tetracyclines Allergy Hives Verified 03/26/22 17:22 tramadol Allergy Hives Verified 03/26/22 17:22 Home Medications Medication Instructions Recorded Confirmed Type atorvastatin 40 mg tablet 80 mg PO DAILY 09/05/19 03/26/22 History linaclotide 72 mcg capsule 72 mcg PO DAILY 09/05/19 03/26/22 History trazodone 50 mg tablet 50 mg PO HS PRN Sleep 09/05/19 03/26/22 History dicyclomine 10 mg capsule 10 mg PO DAILY PRN 09/03/20 03/26/22 History Gastrointestinal Spasms Or Cramping gabapentin 800 mg tablet 800 mg PO TID 09/03/20 03/26/22 History pantoprazole 40 mg tablet,delayed 40 mg PO DAILY 09/03/20 03/26/22 History release levothyroxine 75 mcg tablet 75 mcg PO DAILY 09/05/20 03/26/22 History acetaminophen 325 mg capsule 650 mg PO Q6H PRN pain #100 caps 09/06/20 03/26/22 Rx (Tylenol) amiodarone 200 mg tablet 200 mg PO BID #60 tabs 03/17/22 03/26/22 Rx apixaban 5 mg tablet (Eliquis) 5 mg PO BID #60 tabs 03/17/22 03/26/22 Rx amitriptyline 10 mg tablet 10 mg PO HS 03/26/22 03/26/22 History baclofen 10 mg tablet 10 mg PO TID 03/26/22 03/26/22 History ondansetron 4 mg disintegrating 4 mg PO Q8H PRN Nausea 03/26/22 03/26/22 History tablet Laboratory Tests 03/27/22 10:19 Sodium 139 mmol/L mmol/L (137-145) Potassium 4.2 mmol/L mmol/L (3.4-5.0) Chloride 103 mmol/L mmol/L (98-107) Carbon Dioxide 27 mmol/L mmol/L (22-30) Anion Gap 9 mmol/L mmol/L (8-16) BUN 13 mg/dL mg/dL (7-17) Creatinine 0.70 mg/dL mg/dL (0.7-1.0) Estim Creat Clear Calc 106 ml/min ml/min Estimated GFR > 60 (59 - ) Glucose 95 mg/dL mg/dL (65-110) Calcium 9.3 mg/dL mg/dL (8.4-10.2) Magnesium 1.9 mg/dL mg/dL (1.6-2.3) Patient hx anesthesia problems: none Family hx anesthesia problems: none Results Review: All pre-operative results and documents have been reviewed as part of the pre-operative evaluation. [facility] Past Medical History Medical History (Updated 03/17/22 @ 13:11 by Milan Lopez DO) Anticoagulated with warfarin Anxiety Chronic atrial fibrillation GI (gastrointestinal bleed) 11/2019 when INR was greater than 5, transfused Hypercholesterolemia Persistent atrial fibrillation Surgical History Surgical History History of carpal tunnel surgery History of cholecystectomy Family History Family History Mother , mother of some type of cancer No problems noted. Father , father also of some type of cancer No problems noted. Social History Social History Years smoked: 15 Smoking status: Current every day smoker Tobacco type: cigarettes Smoking end date:
--- NOTE | 2022-03-27 11:15 | ECG_ITS ---
Measurements Intervals [place] Rate: 90 P: [place]: 0 QRS: 38 QRSD: 97 T: 19 QT: 372 QTc: 456 Interpretive Statements ATRIAL FIBRILLATION DELAYED PRECORDIAL R/S TRANSITION LOW QRS VOLTAGE- DIFFUSE LEADS ABNORMAL ECG COMPARED TO ECG 03/17/2022 13:54:07 HEART RATE HAS DECREASED Electronically Signed On 03-27-2022 10:26:02 CDT by Milan Lopez D.O.
--- NOTE | 2022-03-27 11:49 | SUR.PHASEII ---
Pt resting comfortably in bed, drowsy but awakens easily to verbal stimulation, VSS, sinus rhythm on nurse monitoring, continue to monitor.
--- NOTE | 2022-03-27 12:08 | CARDIO_ITS ---
This report was moved to the correct visit on 03/27/22. Original report was signed by Milan Lopez DO on 03/27/221207. Cardioversion Cardioversion Date of procedure: 03/27/22 Procedure: Direct current cardioversion Pre-op diagnosis: Symptomatic atrial fibrillation Post-op diagnosis: Same Indications: Symptomatic atrial fibrillation Description of procedure: Risks/benefits/alternative to cardioversion discuss with patient and she is agreeable to procedure. Patient sedated by anesthesiology. DC cardioversion pads placed in anterior and posterior chest wall. A DENVER was performed which showed no ROCKY or left atrial thrombus. HR in atrial fib between 95-150 bpm. DC cardioversion set at 200 J biphasic synchronized energy and with 1 shock sinus rhythm was restored at 70 bpm. Sedation: As per anesthesiology Conclusion: 1. Successful DC cardioversion from atrial fibrillation to sinus rhythm. [facility]illing for Cardioversion: Cardioversion This dictation may have been done utilizing a voice recognition system. Attempts have been made to correct errors. However, there may be uncorrected grammatical, spelling, and recognition errors present. Report Initialized date/time: Milan Lopez DO 03/27/221207 Electronically signed by: Milan Lopez DO 03/27/221207 [facility]
== END 2022-03-27 13:37 | disposition home or self-care (01) ==
PROVIDERS: Visit Provider Internal Medicine Cardiovascular Disease
PROC: (CPT 93312; principal; 2022-03-27 11:00)
PROC: 5A2204Z Restoration of Cardiac Rhythm, Single (ICD-10-PCS; 2022-03-27 11:00)
DX: I48.91 Unspecified atrial fibrillation (principal); E03.9 Hypothyroidism, unspecified; Z79.01 Long term (current) use of anticoagulants; F41.9 Anxiety disorder, unspecified; E78.00 Pure hypercholesterolemia, unspecified; Z90.49 Acquired absence of other specified parts of digestive tract; F12.90 Cannabis use, unspecified, uncomplicated; E66.9 Obesity, unspecified; Z68.41 Body mass index [BMI] 40.0-44.9, adult; I34.0 Nonrheumatic mitral (valve) insufficiency; I36.1 Nonrheumatic tricuspid (valve) insufficiency; R07.89 Other chest pain; Z86.73 Personal history of transient ischemic attack (TIA), and cerebral infarction without residual deficits; R41.3 Other amnesia; Z87.891 Personal history of nicotine dependence
CPT/HCPCS: 36415; 80048; 83735; 92960; 93312; 93320; 93325; J2704

== ENCOUNTER 2022-04-04 13:10 | Outpatient (CLI) | payer OTHER, SELFPAY ==
--- NOTE | 2022-03-27 12:04 | WPDCARDVER ---
Cardioversion Cardioversion Date of procedure: 03/27/22 Procedure: Direct current cardioversion Pre-op diagnosis: Symptomatic atrial fibrillation Post-op diagnosis: Same Indications: Symptomatic atrial fibrillation Description of procedure: Risks/benefits/alternative to cardioversion discuss with patient and she is agreeable to procedure. Patient sedated by anesthesiology. DC cardioversion pads placed in anterior and posterior chest wall. A DENVER was performed which showed no ROCKY or left atrial thrombus. HR in atrial fib between 95-150 bpm. DC cardioversion set at 200 J biphasic synchronized energy and with 1 shock sinus rhythm was restored at 70 bpm. Sedation: As per anesthesiology Conclusion: 1. Successful DC cardioversion from atrial fibrillation to sinus rhythm. [facility] Billing for Cardioversion: Cardioversion
--- NOTE | 2022-04-04 09:39 | ECHO_ITS ---
Patient Info Name: Courtney Soriano Age: 56 years : 1965 Gender: Female Ht: 67 in Wt: 260 lbs BSA: 2.42 m2 HR: 45 bpm BP: 113 / 82 mmHg Technical Quality: Good Exam Date: 04/04/2022 10:41 AM Exam Location: [facility] Patient Status: Outpatient Admit Date: 04/04/2022 Staff Ordering Physician: Milan Lopez DO Securities Vault Supervisor: Grupo Wooten RDCS, RT Attending Provider: Milan Lopez DO Referring Physician: John WHELAN; Exam Type: CA echo doppler color flow Study Info Indications R07.9 - Chest pain, unspecified Complete two-dimensional, color flow and Doppler transthoracic echocardiogram is performed. Strain analysis performed. Summary 1. Complete two-dimensional, color flow and Doppler transthoracic echocardiogram is performed. 2. Left ventricular chamber dimension is mildly enlarged. 3. Left ventricular systolic function is normal, estimated at 55-60%. 4. The left ventricular diastolic function is grade IV diastolic dysfunction. 5. E/e' 7 is not elevated. 6. Global longitudinal strain is normal at -20.4%. 7. Left atrial chamber dimension is severely enlarged. 8. Right atrial chamber dimension is severely enlarged. 9. There is mild to moderate mitral valve regurgitation. 10. Dilated inferior vena cava with >50% collapse upon inspiration consistent with normal right atrial pressure, 10 mmHg. Left Ventricle E/e' 7 is not elevated. Global longitudinal strain is normal at -20.4%. Left ventricular chamber dimension is mildly enlarged. Left ventricular systolic function is normal, estimated at 55-60%. The left ventricular diastolic function is grade IV diastolic dysfunction. Right Ventricle Right ventricular systolic function is normal and with normal TAPSE 2.4 cm. Right ventricular chamber dimension is normal. Left Atria Left atrial chamber dimension is severely enlarged. Right Atria Right atrial chamber dimension is severely enlarged. Aortic Valve The aortic valve is trileaflet. There is no aortic valve stenosis. There is no aortic valve regurgitation. Pulmonic Valve There is no pulmonic regurgitation. Mitral Valve There is no mitral valve stenosis. There is mild to moderate mitral valve regurgitation. Tricuspid Valve There is no tricuspid valve regurgitation. Pericardium/Pleural There is no pericardial effusion. Inferior Vena Cava Dilated inferior vena cava with >50% collapse upon inspiration consistent with normal right atrial pressure, 10 mmHg. Aorta The aortic root size at the sinus of Valsalva is normal. Left Ventricular Outflow Tract Name Value Normal LVOT 2D LVOT Diameter 2.0 cm LVOT Doppler LVOT Peak Gradient 4 mmHg LVOT Mean Gradient 2 mmHg LVOT VTI 24 cm LVOT VTI/AV VTI Ratio 0.6 LVOT Stroke Volume 77 ml LVOT CO 3.7 l/min LVOT CI 1.5 l/min/m2 Mitral Valve Na
== END 2022-04-04 13:11 | disposition home or self-care (01) ==
LOC: ANHCARD 04-29 13:10
PROVIDERS: PCP Family Medicine; Visit Provider Internal Medicine Cardiovascular Disease
DX: R06.09 Other forms of dyspnea (principal); I34.0 Nonrheumatic mitral (valve) insufficiency
CPT/HCPCS: 93306

== ENCOUNTER 2022-04-07 13:29 | Outpatient (CLI) | payer OTHER, SELFPAY ==
--- NOTE | 2022-04-07 13:35 | ECG_ITS ---
Measurements Intervals [place] Rate: 51 P: 233 [place]: 138 QRS: 63 QRSD: 89 T: 37 QT: 453 QTc: 418 Interpretive Statements SINUS BRADYCARDIA WITH OCCASIONAL SUPRAVENTRICULAR PREMATURE COMPLEXES BASELINE ARTIFACT NONSPECIFIC ST ABNORMALITY LOW QRS VOLTAGE IN PRECORDIAL LEADS BORDERLINE ECG COMPARED TO ECG 03/27/2022 11:40:43 [address]AD[address]CARDIA NOW PRESENT ST (T WAVE) DEVIATION NOW PRESENT Electronically Signed On 04-08-2022 17:03:32 CDT by Kenton Martin M.D.
== END 2022-04-07 13:30 | disposition home or self-care (01) ==
LOC: CHSCARD 13:31
PROVIDERS: PCP Family Medicine; Visit Provider Internal Medicine Cardiovascular Disease
DX: I48.91 Unspecified atrial fibrillation (principal)
CPT/HCPCS: 93005

== ENCOUNTER 2022-05-07 09:57 | Outpatient (CLI) | payer OTHER, SELFPAY ==
--- NOTE | ~2022-05-07 | NM_ITS ---
EXAMINATION: NM otoniel stress w perfusion DATE: 05/07/2022 13:10 INDICATION: Chest pain TECHNIQUE: Rest images were obtained following intravenous administration of 9.3 mCi Tc99m tetrofosmi n (Myoview). The patient was infused intravenously with Lexiscan (Regadenoson). Then, 28.8 mCi Tc99m tetrofosmin (Myoview) was administered intravenously, and stress images were obtained. Data was recon structed into short axis and horizontal and vertical long axis SPECT images. Gated SPECT images were also obtained. COMPARISON: None. FINDINGS: Moderate-sized mild reversible perfusion defect involving the mid anterolateral, mid infero lateral and basilar inferolateral segments consistent with ischemia. No nonreversible perfusion defec ts on the rest images to suggest infarct. There is normal left ventricular chamber size, wall motion and ejection fraction. Left ventricular ejection fraction measures 57%. IMPRESSION: 1. Moderate-sized region of reversible ischemia involving large portion of the circumflex coronary ar kalyan vascular distribution at the mid anterolateral, mid inferolateral and basilar inferolateral segm ents. 2. Left ventricular ejection fraction measuring 57%. Reviewed, dictated and finalized at location B. IMPRESSION: 1. Moderate-sized region of reversible ischemia involving large portion of the circumflex coronary artery vascular distribution at the mid anterolateral, mid inferolateral and basilar inferolateral segments. 2. Left ventricular ejection fraction measuring 57%.
--- NOTE | 2022-05-07 10:06 | EST_ITS ---
Patient Info Name: Courtney Soriano Age: 56 years : 1965 Gender: Female Ht: 67 in Wt: 260 lbs BSA: 2.42 m2 HR: 67 bpm BP: 104 / 52 mmHg Heart Rhythm: Bradycardia, Sinus Rhythm Exam Date: 05/07/2022 11:04 AM Exam Location: [facility] Stress Patient Status: Outpatient Admit Date: 05/07/2022 Staff Ordering Physician: Milan Lopez DO Attending Provider: Milan Lopez DO Exercise Technologist: Mei Rodriguez CT Exercise Physician: Milan Lopez DO Exam Type: CA stress otoniel w NM Study Info Indications R06.00 - Dyspnea, unspecified A regadenoson stress test was performed. Summary 1. 1. Negative lexiscan stress test for ischemic ST changes by ECG criteria. 2. 2. Baseline marked sinus bradycardia. 3. 3. Nuclear scan to follow and will be reported separately. Please correlate with it. 4. 4. Patient informed of the above results. Protocol: Lexiscan Stress ECG Details Stage: REST Duration (min): 6 min : 7 sec HR (bpm): 38 SBP (mmHg): 152 DBP (mmHg): 101 Stage: REST Duration (min): 14 min : 38 sec HR (bpm): 38 SBP (mmHg): 152 DBP (mmHg): 101 Stage: STAGE 1 Duration (min): 0 min : 59 sec HR (bpm): 47 SBP (mmHg): 104 DBP (mmHg): 58 Stage: RECOVERY Duration (min): 1 min : 0 sec HR (bpm): 59 SBP (mmHg): 104 DBP (mmHg): 58 Stage: RECOVERY Duration (min): 2 min : 0 sec HR (bpm): 57 SBP (mmHg): 104 DBP (mmHg): 58 Stage: RECOVERY Duration (min): 2 min : 55 sec HR (bpm): 52 SBP (mmHg): 115 DBP (mmHg): 58 Rest HR: 38 bpm Peak HR: 61 bpm Rest Sys BP: 152 mmHg Peak Sys BP: 115 mmHg Max Pred HR: 165 bpm % Max Pred HR: 37 % Target HR: 140 bpm Max RPP: 7,015 bpm*mmHg Termination Reason: Completed protocol Cardiac Symptoms: Shortness of breath Total Time: 1 min : 0 sec Rest Rothman BP: 101 mmHg Peak Rothman BP: 58 mmHg Total Dose: 0.4 mg Resting ECG Sinus bradycardia. Stress ECG No ST changes. Arrhythmias None. Report Signatures
== END 2022-05-07 09:58 | disposition home or self-care (01) ==
PROVIDERS: PCP Family Medicine; Visit Provider Internal Medicine Cardiovascular Disease
DX: R07.9 Chest pain, unspecified (principal)
CPT/HCPCS: 78452; 93017; A9502; J2785

== ENCOUNTER 2023-03-10 13:44 | Inpatient (IN) | payer OTHER, SELFPAY ==
[2023-03-10] VITALS (41 sets, daily range): BP systolic 89–127; BP diastolic 54–92; PULSE 46–91; RESP 16–30; TEMP 35.4–36.9; O2SAT 94–100; BMI 42.0; BMI 45.0
--- NOTE | ~2023-03-10 | XR_ITS ---
EXAMINATION: XR chest ET placement Exam Date/Time: 03/10/2023 14:40 CDT HISTORY: ETT placement Comparison: 09/05/2020. RESULT: Lines, tubes, and devices: Subdiaphragmatic NG tube. Endotracheal tube terminates 4.5 cm above the c kary. Lungs and pleura: Streaky bibasilar scar/atelectasis. Cardiomediastinal silhouette: Stable. Likely hiatal hernia. Other: No acute osseous or upper abdominal finding. IMPRESSION: Endotracheal tube, in good position. Reviewed, dictated and finalized at location K.
--- NOTE | ~2023-03-10 | CT_ITS ---
EXAMINATION: CTA chest PE protocol DATE: 03/10/2023 15:35 INDICATION: Acute respiratory failure TECHNIQUE: Computed tomography (CT) pulmonary angiogram of the chest was performed with 100 mL Omnipa que-350 intravenous contrast. Additional 3D reconstructions utilizing coronal maximum intensity proje ction (MIP) were performed. Automated exposure control and iterative reconstruction technique were em ployed. The dose-length product was 1040.41 mGy-cm. COMPARISON: None FINDINGS: Good contrast opacification of the pulmonary arteries. There is mild streak artifact from dense contr ast in the superior vena cava and right atrium. Mild scattered respiratory motion artifact. This mild ly decreases sensitivity in some of the smaller subsegmental pulmonary arteries primarily at the lung bases. No pulmonary embolism. Endotracheal tube tip 3.7 cm above the jane. Nasogastric tube extend s into the stomach and beyond the inferior margin of the field of imaging. Mild emphysema. Mild depen dent and basilar atelectasis in the bilateral lower lobes. Additional compressive atelectasis in the medial left lower lobe along side a moderate-sized sliding-type hiatal hernia. Heart size is normal. No pericardial effusion. Thoracic aorta is normal in caliber without dissection. No pathologically en larged thoracic or upper abdominal lymphadenopathy. Cholecystectomy clips at the gallbladder fossa. 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 Mild thoracic kyphosis with chronic appearing mild anterior wed ging at multiple mid to lower thoracic vertebral bodies. There are also several scattered Schmorl's n odes and moderate spondylosis. IMPRESSION: 1. Emphysema with mild atelectasis in bilateral lower lobes. No pulmonary embolism or other acute car diopulmonary disease. Moderate-sized sliding-type hiatal hernia. Reviewed, dictated and finalized at location A. IMPRESSION: 1. Emphysema with mild atelectasis in bilateral lower lobes. No pulmonary embol ism or other acute cardiopulmonary disease. Moderate-sized sliding-type hiatal hernia.
--- NOTE | ~2023-03-10 | XR_ITS ---
EXAM: [id number] DATE: 03/10/2023 14:54 HISTORY: OG tube placement . COMPARISON: None available. FINDINGS: Bibasilar atelectasis. Hiatal hernia. NG tube, tip in the distal antrum, side port in the gastric body. Cholecystectomy clips. Normal bowel gas pattern. No organomegaly. No abnormal abdominal calcification. Lumbar degenerative disc disease. IMPRESSION: NG tube, in good position. Reviewed, dictated and finalized at location K. IMPRESSION: NG tube, in good position.
--- NOTE | ~2023-03-10 | XR_ITS ---
EXAMINATION: XR chest 1V portable DATE: 03/11/2023 05:33 INDICATION: Intubated. TECHNIQUE: A single frontal view of the chest was obtained. COMPARISON: Chest view 03/10/2023, chest CT 03/10/2023 FINDINGS: The patient is rotated to her left. There is mild atelectasis at the lung bases. No pleural effusion or pneumothorax. The heart size is normal. The endotracheal tube tip is 4.5 cm above the ca bar[place]. The nasogastric tube tip is beyond the inferior margin of the radiograph, but at least to the s tomach. IMPRESSION: 1. Mild atelectasis at the lung bases. Reviewed, dictated and finalized at location A.
--- NOTE | 2023-03-10 10:30 | ECG_ITS ---
Measurements Intervals [place] Rate: 118 P: 89 NH: 168 QRS: 106 QRSD: 85 T: 45 QT: 315 QTc: 442 Interpretive Statements SINUS TACHYCARDIA RIGHT AXIS DEVIATION ATRIAL PREMATURE COMPLEX LOW QRS VOLTAGE- DIFFUSE LEADS BASELINE ARTIFACT- AVR, AVL, AVF, V1, V4-V6 ABNORMAL ECG COMPARED TO ECG 03/10/2023 11:27:01 SINUS TACHYCARDIA NOW PRESENT Electronically Signed On 03-10-2023 14:07:59 CDT by Milan Lopez D.O.
[2023-03-10 11:49] LABS: Anion Gap 6 mmol/L (8-16); Blood Urea Nitrogen 13 mg/dL (7-17); Carbon Dioxide 29 mmol/L (22-30); Chloride 105 mmol/L (98-107); Estimated CRCL calculation 101 ml/min; Estimated Glomerular Filt Rate > 60; Glucose 97 mg/dL (65-110); Magnesium 1.9 mg/dL (1.6-2.3); Potassium 3.6 mmol/L (3.4-5.0); Sodium 140 mmol/L (137-145)
--- NOTE | 2023-03-10 12:05 | WPDANESEPPF ---
Anes - Initial Pre Proc Eval Procedure: Operation Date: 03/10/23 12:00 Proposed Procedures p Trans Esophageal Echo - Milan Lopez DO s Electrical Cardioversion - Milan Lopez DO Date/Time: 03/10/23 12:05 Surgeon: Milan Lopez DO Pre Op Diagnosis: Atrial Fibrillation Patient Data Age: 57 Gender: F Height: 1.68 m Weight: 118 kg Last Vital Signs Temp 35.7 C L 03/10/23 11:34 Pulse 64 03/10/23 11:34 Resp 16 03/10/23 11:34 BP 127/92 H 03/10/23 11:34 Pulse Ox 100 03/10/23 11:34 O2 Del Method Room Air 03/10/23 11:34 Allergies Allergy/AdvReac Type Severity Reaction Status Date / Time amoxicillin Allergy Hives Verified 03/10/23 11:24 azithromycin Allergy Hives Verified 03/10/23 11:24 Cephalosporins Allergy Hives Verified 03/10/23 11:24 citalopram Allergy Hives Verified 03/10/23 11:24 cyclobenzaprine Allergy Hives Verified 03/10/23 11:24 fluoxetine Allergy Hives Verified 03/10/23 11:24 metronidazole Allergy Hives Verified 03/10/23 11:24 sertraline Allergy Hives Verified 03/10/23 11:24 Sulfa (Sulfonamide Allergy Hives Verified 03/10/23 11:24 Antibiotics) Tetracyclines Allergy Hives Verified 03/10/23 11:24 tramadol Allergy Hives Verified 02/23/23 13:54 Home Medications Medication Instructions Recorded Confirmed Type atorvastatin 40 mg tablet 80 mg PO DAILY 09/05/19 03/10/23 History linaclotide 72 mcg capsule 72 mcg PO DAILY 09/05/19 03/10/23 History dicyclomine 10 mg capsule 10 mg PO DAILY PRN 09/03/20 03/10/23 History Gastrointestinal Spasms Or Cramping gabapentin 800 mg tablet 800 mg PO TID 09/03/20 03/10/23 History pantoprazole 40 mg tablet,delayed 40 mg PO DAILY 09/03/20 02/23/23 History release levothyroxine 75 mcg tablet 75 mcg PO DAILY 09/05/20 03/10/23 History apixaban 5 mg tablet (Eliquis) 5 mg PO BID #60 tabs 03/17/22 03/10/23 Rx amitriptyline 10 mg tablet 10 mg PO HS 03/26/22 03/10/23 History baclofen 10 mg tablet 10 mg PO TID 03/26/22 03/10/23 History amiodarone 100 mg tablet 50 mg PO DAILY 03/10/23 03/10/23 History clonazepam 0.5 mg tablet 0.5 mg PO BID 03/10/23 03/10/23 History Laboratory Tests 03/10/23 11:31 Sodium 140 mmol/L (137-145) Potassium 3.6 mmol/L (3.4-5.0) Chloride 105 mmol/L (98-107) Carbon Dioxide 29 mmol/L (22-30) Anion Gap 6 L mmol/L (8-16) BUN 13 mg/dL (7-17) Creatinine 0.70 mg/dL (0.7-1.0) Estim Creat Clear Calc 101 ml/min Estimated GFR > 60 (59 - ) Glucose 97 mg/dL (65-110) Calcium 9.0 mg/dL (8.4-10.2) Magnesium 1.9 mg/dL (1.6-2.3) Patient hx anesthesia problems: none Family hx anesthesia problems: none Results Review: All pre-operative results and documents have been reviewed as part of the pre-operative evaluation. [facility] Past Medical History Medical History Anticoagulated with warfarin Anxiety Chronic atrial fibrillation GI (gastrointestinal bleed) 11/2019 when INR was greater than 5, transfused Hypercholesterolemia Persistent atrial fibrillation Surgical History Surgical History History of carpal tunnel surgery History of cholecystectomy Family History Family History Mother , mother of some type of cancer No problems noted. Father , father also of some type of cancer No problems noted. Social History Social History Years smoked: 15 Smoking status: Current every day smoker Tobacco type: cigarettes Smoking end date: 07/06/20 Additional smoking assessment comments: smokes approx 1 pack per 2 weeks Alcohol intake: former Alcohol use details: rarely drinks alcohol Substance use: never Substance use type: other Other substance usage details: CBD/THC g
--- NOTE | 2023-03-10 12:15 | ECG_ITS ---
Measurements Intervals [place] Rate: 64 P: CT: 0 QRS: 46 QRSD: 110 T: 17 QT: 423 QTc: 438 Interpretive Statements ATRIAL FIBRILLATION LOW QRS VOLTAGE IN DIFFUSE LEADS ABNORMAL ECG COMPARED TO ECG 04/07/2022 13:52:15 ATRIAL FIBRILLATION NOW PRESENT Electronically Signed On 03-10-2023 11:29:09 CDT by Milan Lopez D.O.
[2023-03-10] MEDS: ALBUTEROL SULFATE NEB 2.5 MG/3 ML INH INHALATION (12:57)
--- NOTE | 2023-03-10 13:55 | WPDCNINT ---
Assessment and Plan Assessment and plan (1) Atrial fibrillation status post cardioversion: Code(s): I48.91 - Unspecified atrial fibrillation Status: Acute Assessment and Plan: Patient has a history of atrial fibrillation on Eliquis at home, low brought into the hospital as an outpatient for cardioversion. -DENVER was unsuccessful as a manufacturing electrician could not advance the DENVER probe. -patient was cardioverted successfully to sinus rhythm -during cardioversion patient was found to be hypoxic, post cardioversion, patient was found to be hypotensive and was given some IV fluids -while in the PACU patient agitated/anxious/panic attack and was intubated and transferred to the ICU -currently in sinus rhythm, will continue to monitor (2) Acute respiratory failure: Qualifiers: Respiratory failure complication: unspecified whether with hypoxia or hypercapnia Qualified Code(s): J96.00 - Acute respiratory failure, unspecified whether with hypoxia or hypercapnia Code(s): J96.00 - Acute respiratory failure, unspecified whether with hypoxia or hypercapnia Status: Acute Assessment and Plan: Patient had a questionable anxiety/panic attack, was intubated in the PACU -according the manufacturing electrician and labor training manager RNs patient was hypoxic during the procedure -currently on CMV mode of ventilation up peep of 8 and 50% FiO2 -have ordered CXR and KUB -have ordered post intubation ABG -patient is currently sedated with fentanyl, Versed and propofol infusion, maintain RASS of 0 to -2 -patient has been requiring significant amount of sedation (3) Hypotension: Qualifiers: Hypotension type: unspecified hypotension type Qualified Code(s): I95.9 - Hypotension, unspecified Code(s): I95.9 - Hypotension, unspecified Status: Acute Assessment and Plan: Improving with IV fluids, will continue to monitor (4) Anxiety: Code(s): F41.9 - Anxiety disorder, unspecified Status: Acute Assessment and Plan: Patient on gabapentin, clonazepam at home, will continue (5) Hypercholesterolemia: Code(s): E78.00 - Pure hypercholesterolemia, unspecified Status: Acute Assessment and Plan: Continue atorvastatin (6) Tobacco abuse: Code(s): Z72.0 - Tobacco use Status: Acute Assessment and Plan: Patient has a history of tobacco use and takes marijuana gummies -once extubated will genetic counselor on cessation of smoking Plan DVT prophylaxis: Eliquis and 1 dose of therapeutic Lovenox Stress ulcer prophylaxis: Protonix Nutrition: NPO Code Status: Full code Critical Care Time Spent: [address] Lopez, Dr. Davison. Due to a high probability of clinically significant, life threatening deterioration, the patient required my highest level of preparedness to intervene emergently and I personally spent this critical care time directly and personally managing the patient. This critical care time included obtaining a history; examining the patient; pulse oximetry; ordering and review of studies; arranging urgent treatment with development of a management plan; evaluation of patient's response to treatment; frequent reassessment; and discussions with other providers. It was exclusive of separately billable procedures and treating other patients and teaching time. Please see Assessment and Plan section and the rest of the note for further information on patient assessment and treatment This dictation may have been done utilizing a voice recognition system. Attempts have been made to correct errors. However, there may be uncorrected grammatical, spelling, and recognitions errors present. [employer] Consult Note Consult date: 03/10/23 Reason for consult: Hypoxia, Acute respiratory failure, hypotension, status post successful cardioversion for AFib, panic attack HPI: Courtney Soriano is a 57 year old female with past medical history of atrial fibrillation on Eliquis,
[2023-03-10] MEDS: FENTANYL 2,500MCG/NS250ML(*CRX 2,500 MCG/250 ML BAG IV CONT (14:03)
[2023-03-10] MEDS: MIDAZOLAM 100MG/NS 100ML(*CRX) 100 MG/100 ML BAG 7 MG IV CONT (14:04)
[2023-03-10] MEDS: fentaNYL CITRATE INJ (*CRX) 100 MCG/2 ML VIAL IV PUSH ×2 (14:10→14:15)
[2023-03-10] MEDS: PROPOFOL IV EMULSION 100 ML 17.7 MG IV CONT (14:14)
--- NOTE | 2023-03-10 14:14 | PM.IMHP ---
H&P: HPI History of Present Illness Date/Time: 03/10/23 14:14 Chief Complaint: Hypotension Narrative: 57 yr old woman who is my regular cardiology patient presents elective cardioversion for symptomatic atrial fibrillation. 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 Patient seen in GI lab with anesthesiology service for DENVER/DC cardioversion. She was in atrial fibrillation with HR range 60's bpm range. BP was stable 120/70 mmHg. Pulse ox 100%. Patient was sedated as per anesthesiology, but DENVER probe had resistant each time I attempted. Her HR went up to 200 bpm in atrial fibrillation and BP was down at 85/60 mmHg, and pulse ox 85%. Since patient has been anticoagulated without interruption with Eliquis this past year, we moved forward with DC cardioversion. It took 2 attempts then sinus rhythm was restored. However, she remained hypotensive at 60-70 SBP, HR at 110-120 bpm in sinus rhythm, pulse ox 85%. She was remaining this way 30 minutes after cardioversion. Neb treatment given and she did cough up some mucous. However, she continued to feel like she could not breathe. A code was called, and she was intubated by anesthesiology service. She had a heat stroke and went back into atrial fibrillation a couple of weeks ago. She had DENVER/DC cardioversion on 03/27/22 that was free from atrial fib for one year. She has anxiety and mild palpitations and KELSEY related to it. She is limited at walking 1/2 block due to KELSEY and neuropathy of legs/feet. She smokes 2 cigarettes per day. Denies orthopnea, PND, edema, dizziness. Cardiovascular Procedures Manager Social Services:: 06/02/22 [facility] with Dr. Brown: Normal coronaries. Echo/MUGA:: 04/04/22 Echo: EF 55-60%, mild LVE, grade IV diastolic dysfunction (E/e' 7), severe biatrial enlargement, mild-mod TR. 03/27/22 DENVER: EF 60-65%, severe LAE, mild MR/TR. Electrophysiology:: 04/07/22 EKG: Sinus bradycardia at 51 bpm, QTc 418 ms. 03/27/22 EKG: Sinus rhythm borderline ST-T wave in anterolat/inf leads, QTc 457 ms. 03/27/22 DC cardioversion was successful from atrial fib to sinus rhythm. 09/24/20 DC cardioversion was successful from atrial fib to sinus bradycardia at 38 bpm. 09/24/20 EKG: Sinus bradycardia at 38 bpm, borderline T wave in ant/inf leads. 09/24/20 EKG: atrial fibrillation at 71 bpm, QTc 421 ms. Stress Tests:: 05/07/22 Lexiscan myoview: Moderate ischemia of LCx distribution with mild anterolat/mid inferolat and basal inferolat defects. Review of Systems Review of Systems: All systems reviewed & are unremarkable except as noted in HPI and below ROS unobtainable: Yes unobtainable due to endotracheal tube PMFSH Past Medical History Medical History Anticoagulated with warfarin Anxiety Chronic atrial fibrillation GI (gastrointestinal bleed) 11/2019 when INR was greater than 5, transfused Hypercholesterolemia Persistent atrial fibrillation Surgical History Surgical History History of carpal tunnel surgery History of cholecystectomy Family History Family History Mother , mother of some type of cancer No problems noted. Father , father also of some type of cancer No problems noted. Social History Social History Years smoked: 15 Smoking status: Current every day smoker Tobacco type: cigarettes Smoking end date: 07/06/20 Additional smoking assessment comments: smokes approx 1 pack per 2 weeks Alcohol intake: former Alcohol use details: rarely drinks alcohol Substance use: never Substance use type: other Other substance usage details: CBD/THC gummies Living ar
--- NOTE | 2023-03-10 14:23 | ADMGEN ---
This patient, Courtney Soriano, was admitted to Intensive Care Unit-6 at 1400. Patient/family oriented to hospital policies and general routines including ID bracelet, bed and alarms, visiting hours, pain management, procedures, bathroom and other care routines, personal items, smoking policy, room service/diet, and visiting hours. Information on how to activate the Rapid Response Team has been discussed. Patient/Family are encouraged to report perceived risks to care and to ask questions if they do not understand what they are told or what they should do.
[2023-03-10] MEDS: SODIUM CHLORIDE 0.9% IV 500 ML 999 ML IV CONT ×2 (14:24)
[2023-03-10] MEDS: PANTOPRAZOLE SODIUM IV 40 MG VIAL IV PUSH (14:25)
[2023-03-10] MEDS: ENOXAPARIN 120 MG/0.8 ML SYRINGE 115 MG SUB-Q (14:26)
[2023-03-10 14:31] LABS: Alveolar/Arterial O2 Gradient 202.5 mmHg; Base Excess ABG -8.5 mEq/l (+/-2.0); Carboxyhemoglobin 1.1 % THb (0-2.0); Fractional Inspired Oxygen 50 %; Methemoglobin ABG 0.2 %THb (0-1.5); Oxygen Saturation ABG 96.6 % (95.0-100.0); Oxyhemoglobin 94.7 % THb (90.0-100.0); PCO2 ABG 46.4 mmHg (35.0-45.0); PO2 ABG 101.8 mmHg (80.0-100.0); PO2 FiO2 Ratio Arterial Blood 2.04 %; Total Hemoglobin 13.4 g/dL (12.0-18.0)
[2023-03-10 14:35] LABS: Device VENTILATOR; Modified Allen's Test Pass; Site Drawn RIGHT RADIAL; pH ABG 7.229 (7.350-7.450)
--- NOTE | 2023-03-10 14:35 | P.PCNCVR_ITS ---
Cardioversion Cardioversion Date of procedure: 03/10/23 Procedure: DC Cardioversion Pre-op diagnosis: Symptomatic atrial fibrillation Post-op diagnosis: Same Indications: Atrial fibrillation Description of procedure: Risks/benefits/alternative to DENVER/DC cardioversion discuss with patient and she gave informed consent. She was monitored electrocardiographically, vitals and pulse ox. She was in atrial fibrillation with HR range 60's bpm range. BP was stable 120/70 mmHg. Pulse ox 100%. Patient was sedated as per anesthesiology, but DENVER probe had resistant each time I attempted. Her HR went up to 200 bpm in atrial fibrillation and BP was down at 85/60 mmHg, and pulse ox 85%. Since patient has been anticoagulated without interruption with Eliquis this past year, we moved forward with DC cardioversion.? It took 2 attempts then sinus rhythm was restored. However, she remained hypotensive at 60-70 SBP, HR at 110- 120 bpm in sinus rhythm, pulse ox 85%. She was remaining this way 30 minutes after cardioversion. Neb treatment given and she did cough up some mucous. However, she continued to feel like she could not breathe. A code was called, and she was intubated by anesthesiology service. Then she was transferred to ICU. Sedation: As per anesthesiology Conclusion: 1. Successful DC cardioversion restoring sinus rhythm. 2. Post cardioversion hypotension and hypoxia. S/P Intubation and transfer to ICU for further management. [facility] [place]illing for Cardioversion: Cardioversion
[2023-03-10 14:36] LABS: Arterial Blood Gas PEEP 8 cmH2O; Arterial Blood Gas Tidal Volume 400 ml; Arterial Blood Gas Vent Mode CMV; Arterial Blood Gas Ventilator rate 20 /MIN
[2023-03-10 14:58] LABS: Basophils Percent Auto 0.2 % (0.2-1.2); Eosinophils Absolute Auto 0.1 K/mm3 (0-0.3); Eosinophils Percent Auto 1.2 % (0-4.4); Hematocrit 40.5 % (37.0-47.0); Hemoglobin 12.7 g/dL (12.0-15.0); Immature Granulocyte Absolute 0.07 K/mm3 (0.00-0.031); Immature Granulocyte Percent A 0.6 % (0-0.5); Lymphocytes Absolute Auto 1.41 K/mm3 (0.9-3.2); Lymphocytes Percent Auto 11.6 % (18.3-44.2); Mean Corpuscular HGB Conc 31.4 g/dl (32-36); Mean Corpuscular Hemoglobin 31.4 pg (26-34); Mean Corpuscular Volume 100.2 fl (80-100); Monocytes Absolute Auto 0.5 K/mm3 (0.1-0.6); Monocytes Percent Auto 4.4 % (2.6-8.5); Platelet Count Result 207 k/mm3 (150-375); Red Blood Count 4.04 M/mm3 (4.2-5.4); Red Cell Distribution Width 13.9 % (11.5-14.5); White Blood Count 12.2 K/mm3 (4.5-10.0)
[2023-03-10 15:09] LABS: INR 1.5; Partial Thromboplastin Time 26.7 SECONDS (22.3-36.8); Prothrombin Time 18.9 Seconds (11.1-14.7)
[2023-03-10 15:16] LABS: Alanine Aminotransferase 14 U/L (6-35); Albumin Level 2.9 g/dL (3.5-5.1); Alkaline Phosphatase 70 U/L (38-126); Anion Gap 5 mmol/L (8-16); Aspartate Amino Transferase 21 U/L (14-36); Bilirubin,Total 0.7 mg/dL (0.2-1.3); Blood Urea Nitrogen 14 mg/dL (7-17); Calcium 7.7 mg/dL (8.4-10.2); Carbon Dioxide 23 mmol/L (22-30); Chloride 111 mmol/L (98-107); Estimated CRCL calculation 83 ml/min; Estimated Glomerular Filt Rate > 60; Glucose 144 mg/dL (65-110); Lactic Acid Reflex 1.9 mmol/L (0.7-2.0); Potassium 3.3 mmol/L (3.4-5.0); Sodium 139 mmol/L (137-145)
[2023-03-10 15:17] LABS: Triglycerides 131 mg/dL (<150)
[2023-03-10] MEDS: LEVALBUTEROL NEB 1.25 MG/3 ML 0.63 MG INHALATION ×2 (15:45→19:52)
[2023-03-10] MEDS: IPRATROPIUM BR 0.02% INH SOLN 0.5 MG/2.5 ML VIAL INHALATION ×2 (15:45→19:52)
--- NOTE | 2023-03-10 15:51 | SUR.OPER ---
1256. This RN informed HAYDEE Murray about patient needing ICU bed for hypotension 70's/50's and hypoxia during procedure. Informed that Dr Lopez requested central line placement and possible levophed to be started. Pt currently receiving Albuterol treatment at this time. 1257. Anesthesia gave report to Salvatore Bella RN 100 Propofol iv for procedure and 700mcg Neosynephrine. 1258. HAYDEE Murray notified that Dr Davison and BETTINA transferred care without central line, deemed unnecessary. 1306. Albuterol treatment completed. Pts breathing shallow, labored and tachypnic stating unable to breathe . Pt SPO2 100% on 8Lpm/nc. 1307. This rn called Dr Lopez, ABG ordered. Respiratory called back to room to obtain ABG. 1308. Rapid response called. 1311. Medications given for intubation by BETTINA Wallace 140mg Succinylcholine, 100mg Propofol, and 10mg of Etomidate given. 1313. Pt intubated without difficulty by Dr Davison 22cm at the teeth. 1322. Pt arousing Versed 4mg ivp given per BETTINA Wallace. 1323. Pt transferred to ICU.
[2023-03-10] MEDS: GABAPENTIN 400 MG CAPSULE 800 MG PO (16:08)
[2023-03-10] MEDS: BACLOFEN 10 MG TABLET PO (16:50)
[2023-03-10] MEDS: MINERAL OIL/WHITE PETROLATUM OINTMENT 1 APPLIC EACH EYE (21:05)
[2023-03-10] MEDS: clonazePAM (*CRX) 0.5 MG TABLET PO (21:05)
--- NOTE | 2023-03-10 21:22 | WPDCN ---
Assessment and Plan Assessment and plan (1) Acute respiratory failure: Qualifiers: Respiratory failure complication: unspecified whether with hypoxia or hypercapnia Qualified Code(s): J96.00 - Acute respiratory failure, unspecified whether with hypoxia or hypercapnia Code(s): J96.00 - Acute respiratory failure, unspecified whether with hypoxia or hypercapnia Status: Acute Assessment and Plan: Patient was intubated in the PACU after she became agitated and anxious. She was reportedly hypoxic after receiving propofol for the DENVER for cardioversion as well. Currently on CMV with a PEEP of 8 and FiO2 of 50 %. Management per club concierge. (2) Atrial fibrillation status post cardioversion: Code(s): I48.91 - Unspecified atrial fibrillation Status: Acute Assessment and Plan: She was brought into the hospital today for an outpatient cardioversion as above. DENVER was unsuccessful as the probe could not be advanced. She was subsequently cardioverted to a sinus rhythm and she is now in sinus bradycardia. Post cardioversion she was hypotensive and hypoxic as detailed above had required push dose pressors and IV fluids. (3) Hypotension: Qualifiers: Hypotension type: unspecified hypotension type Qualified Code(s): I95.9 - Hypotension, unspecified Code(s): I95.9 - Hypotension, unspecified Status: Acute Assessment and Plan: Patient became hypotensive following cardioversion and received a total of 700 mcg of phenylephrine IV fluids. Blood pressures have remained on the low end of normal but have been stable with MAPs. (4) Hypothyroidism: Code(s): E03.9 - Hypothyroidism, unspecified Status: Acute Assessment and Plan: Continue levothyroxine and check TSH. (5) Diastolic congestive heart failure: Code(s): I50.30 - Unspecified diastolic (congestive) heart failure Status: Acute Assessment and Plan: Appears clinically compensated at this time. Avoid over-hydration monitor volume status closely. (6) Chronic anticoagulation: Code(s): Z79.01 - lobsterman (current) use of anticoagulants Status: Acute Assessment and Plan: Patient is on chronic anticoagulation with apixaban. (7) Tobacco abuse: Code(s): Z72.0 - Tobacco use Status: Acute Assessment and Plan: Smoking cessation is imperative and will be discussed once extubated. HPI Data of Consult Date/Time: 03/10/23 20:30 Requesting Physician: Milan Lopez DO. Consult Narrative Reason for consult: Medical management. Narrative: This is a 57-year-old female smoker with history of DVT and PE, atrial fibrillation on chronic anticoagulation, GI bleed, morbid obesity, hyperlipidemia, and anxiety whom the hospitalist service has been consulted for help managing her medical conditions. She is currently sedated and intubated is unable to provide any history and as such all of following is obtained via a review of her electronic medical records. She was scheduled for an outpatient DENVER cardioversion today for atrial fibrillation and shortly after administration of propofol she became hypoxic and hypotensive with systolic blood pressures in the 50s and 60s. She received a total of 700 mcg of phenylephrine and an IV fluid bolus and she was taken to the PACU where she became agitated and anxious. She was subsequently intubated by the anesthesiologist and she is being admitted to the ICU for further management. She is sedated but arousable and does follow simple commands. She does not express obvious discomfort. Review of Systems Review of Systems: Unable to obtain given clinical condition. [facility] Past Medical History Medical History (Updated 03/10/23 @ 22:20 by Noa Schilling PA-C) Anxiety Cerebrovascular accident Chronic anticoagulation Chronic atrial fibrillation Deep venous thrombosis Depression with anxiety
[2023-03-11] VITALS (31 sets, daily range): BP systolic 97–142; BP diastolic 54–80; PULSE 54–88; RESP 11–28; TEMP 36.9–37.5; O2SAT 93–100
--- NOTE | 2023-03-11 | ECHO_ITS ---
Patient Info Name: Courtney Soriano Age: 57 years : 1965 Gender: Female Ht: 66 in Wt: 280 lbs BSA: 2.50 m2 HR: 61 bpm BP: 127 / 68 mmHg Heart Rhythm: Sinus Rhythm Technical Quality: Fair Exam Date: 03/11/2023 9:36 AM Exam Location: [facility] Pulmonary Exam Room: ICU6 Patient Status: Inpatient Admit Date: 03/10/2023 Staff Ordering Physician: Mlian Lopez DO Spa Concierge: Klarissa Wilde RDCS Attending Provider: Milan Lopez DO Referring Physician: John WHELAN; Exam Type: CA echo dop color flow w con Study Info Indications - HYPOTENSION Complete two-dimensional, color flow and Doppler transthoracic echocardiogram is performed with contrast to opacify the left ventricle and to improve the deliniation of the left ventricle endocardial borders. Contrast/Agitated Saline Contrast/Ag. Saline: Definity Amount: 2.00 ml Administered By: Klarissa Wilde [facility] Existing IV Access: Yes Summary 1. Definity contrast administered improved wall motion interpretation. 2. Left ventricular chamber dimension is normal. 3. Left ventricular systolic function is normal, estimated at 65-70%. 4. The left ventricular diastolic function is normal. 5. E/e' 9 is minimally elevated. 6. Left atrial chamber dimension is severely enlarged. 7. Right atrial chamber dimension is moderately enlarged. 8. There is trace mitral valve regurgitation. 9. No pulmonary hypertension, estimated pulmonary arterial systolic pressure is 23 mmHg. Left Ventricle Definity contrast administered improved wall motion interpretation. E/e' 9 is minimally elevated. Left ventricular chamber dimension is normal. Left ventricular systolic function is normal, estimated at 65-70%. The left ventricular diastolic function is normal. Right Ventricle Right ventricular chamber dimension is normal. Right ventricular systolic function is normal. Left Atria Left atrial chamber dimension is severely enlarged. Right Atria Right atrial chamber dimension is moderately enlarged. Aortic Valve The aortic valve is trileaflet. There is no aortic valve stenosis. There is no aortic valve regurgitation. Pulmonic Valve There is no pulmonic regurgitation. Mitral Valve There is no mitral valve stenosis. There is trace mitral valve regurgitation. Tricuspid Valve There is no tricuspid valve regurgitation. No pulmonary hypertension, estimated pulmonary arterial systolic pressure is 23 mmHg. Pericardium/Pleural There is no pericardial effusion. Inferior Vena Cava Normal inferior vena cava with >50% collapse upon inspiration consistent with normal right atrial pressure, 5 mmHg. Aorta The aortic root size at the sinus of Valsalva is normal. Left Ventricular Outflow Tract Name Value Normal LVOT 2D LVOT Diameter 1.97 cm LVOT Doppler LVOT Peak Gradient 5 mmHg LVOT Mean Gradient 3 mmHg LVOT VTI 22.47 cm LVOT VTI/AV VTI Ratio 0.83 LVOT Stroke Volume 68.60 ml LVOT CO 14.23 l/min LVOT CI 5.69 L/min/m2
[2023-03-11] MEDS: IPRATROPIUM BR 0.02% INH SOLN 0.5 MG/2.5 ML VIAL INHALATION ×4 (01:52→20:44)
[2023-03-11] MEDS: LEVALBUTEROL NEB 1.25 MG/3 ML 0.63 MG INHALATION ×4 (01:52→20:44)
[2023-03-11 04:37] LABS: Basophils Percent Auto 0.1 % (0.2-1.2); Eosinophils Percent Auto 0.2 % (0-4.4); Hematocrit 39.3 % (37.0-47.0); Immature Granulocyte Absolute 0.04 K/mm3 (0.00-0.031); Immature Granulocyte Percent A 0.5 % (0-0.5); Lymphocytes Absolute Auto 1.19 K/mm3 (0.9-3.2); Lymphocytes Percent Auto 13.9 % (18.3-44.2); Mean Corpuscular HGB Conc 30.5 g/dl (32-36); Mean Corpuscular Volume 101.6 fl (80-100); Mean Platelet Volume 10.1 fl (7.4-10.4); Monocytes Absolute Auto 0.4 K/mm3 (0.1-0.6); Monocytes Percent Auto 5.1 % (2.6-8.5); Neutrophils Absolute Auto 6.9 K/mm3 (1.3-6.7); Neutrophils Percent Auto 80.2 % (45.5-73.1); Platelet Count Result 199 k/mm3 (150-375); Red Blood Count 3.87 M/mm3 (4.2-5.4); Red Cell Distribution Width 13.8 % (11.5-14.5); White Blood Count 8.6 K/mm3 (4.5-10.0)
[2023-03-11 04:55] LABS: Alanine Aminotransferase 25 U/L (6-35); Albumin Level 3.5 g/dL (3.5-5.1); Alkaline Phosphatase 81 U/L (38-126); Anion Gap 11 mmol/L (8-16); Aspartate Amino Transferase 32 U/L (14-36); Bilirubin,Total 0.7 mg/dL (0.2-1.3); Blood Urea Nitrogen 16 mg/dL (7-17); Calcium 7.9 mg/dL (8.4-10.2); Carbon Dioxide 21 mmol/L (22-30); Chloride 108 mmol/L (98-107); Estimated CRCL calculation 69 ml/min; Estimated Glomerular Filt Rate 51; Glucose 123 mg/dL (65-110); Magnesium 1.9 mg/dL (1.6-2.3); Phosphorus 5.4 mg/dL (2.5-4.5); Potassium 4.7 mmol/L (3.4-5.0); Sodium 140 mmol/L (137-145)
[2023-03-11 05:44] LABS: Alveolar/Arterial O2 Gradient 91.8 mmHg; Base Excess ABG -4.1 mEq/l (+/-2.0); Carboxyhemoglobin 0.3 % THb (0-2.0); Fractional Inspired Oxygen 40 %; HCO3 ABG 20.6 mEq/l (22.0-26.0); Methemoglobin ABG 0.2 %THb (0-1.5); Oxygen Saturation ABG 98.9 % (95.0-100.0); Oxyhemoglobin 97.8 % THb (90.0-100.0); PCO2 ABG 36.7 mmHg (35.0-45.0); PO2 ABG 151.2 mmHg (80.0-100.0); PO2 FiO2 Ratio Arterial Blood 3.78 %; Reduced Hemoglobin 1.7 %THb (0-5.0); Total Hemoglobin 12.9 g/dL (12.0-18.0); pH ABG 7.368 (7.350-7.450)
[2023-03-11 05:45] LABS: Arterial Blood Gas Vent Mode CMV; Arterial Blood Gas Ventilator rate 22 /MIN; Device VENTILATOR; Modified Allen's Test Pass; Site Drawn RIGHT RADIAL
[2023-03-11 05:46] LABS: Arterial Blood Gas PEEP 8 cmH2O; Arterial Blood Gas Tidal Volume 400 ml
[2023-03-11 05:57] LABS: Thyroid Stimulating Hormone Reflex 0.809 uIU/mL (0.465-4.68)
[2023-03-11] MEDS: LEVOTHYROXINE SODIUM 75 MCG TABLET PO (06:40)
--- NOTE | 2023-03-11 07:00 | ECG_ITS ---
Measurements Intervals [place] Rate: 62 P: 103 ND: 186 QRS: 42 QRSD: 85 T: 40 QT: 437 QTc: 447 Interpretive Statements SINUS RHYTHM LOW QRS VOLTAGE- DIFFUSE LEADS BORDERLINE T WAVE ABNORMALITY- INFERIOR LEADS BORDERLINE ECG COMPARED TO ECG 03/10/2023 12:36:13 SINUS RHYTHM NOW PRESENT Electronically Signed On 03-11-2023 12:47:00 CDT by Milan Lopez D.O.
--- NOTE | 2023-03-11 07:59 | PM.PNCARD ---
Progress Note: A&P Assessment and Plan (1) Persistent atrial fibrillation: Code(s): I48.19 - Other persistent atrial fibrillation Status: Acute Assessment and Plan: S/P Cardioversion back to Sinus rhythm. On Amiodarone 50 mg daily to maintain sinus rhythm. On Eliquis. Holding off on Amiodarone for now while intubated. (2) Acute respiratory failure: Qualifiers: Respiratory failure complication: unspecified whether with hypoxia or hypercapnia Qualified Code(s): J96.00 - Acute respiratory failure, unspecified whether with hypoxia or hypercapnia Code(s): J96.00 - Acute respiratory failure, unspecified whether with hypoxia or hypercapnia Status: Acute Assessment and Plan: Secondary to sedation for cardioversion. Intubated on mechanical ventilation. Implementation Advisor following. (3) Hypotension: Qualifiers: Hypotension type: unspecified hypotension type Qualified Code(s): I95.9 - Hypotension, unspecified Code(s): I95.9 - Hypotension, unspecified Status: Acute Assessment and Plan: Secondary to sedation for Cardioversion. She received IVF and BP stable now. (4) Tobacco abuse: Code(s): Z72.0 - Tobacco use Status: Acute Assessment and Plan: Counseled regarding smoking cessation. (5) Hypercholesterolemia: Code(s): E78.00 - Pure hypercholesterolemia, unspecified Status: Acute Assessment and Plan: On Atorvastatin. Subjective Date/time seen: 03/11/23 07:59 Interval history: Patient is on mechanical ventilation, sedated. Exam Const: General: no acute distress Orientation/consciousness: confusion Resp: Auscultation: clear to auscultation bilaterally, no crackles, no rales, no rhonchi and no wheezes Cardio: Rate: bradycardic Rhythm: regular rhythm Heart sounds: no murmurs Peripheral pulses: dorsalis pedis present GI: GI Palp: No abdominal tenderness and Yes Soft to palpation Extrem: Right lower extremity: no edema Left lower extremity: no edema Objective Data Vital Signs Vital Signs: Vital Signs - 24 hr 03/10/23 11:34 03/10/23 13:30 03/10/23 12:57 Temperature 96.2 F L Pulse Rate 64 76 91 Respiratory Rate 16 24 H Blood Pressure 127/92 H Pulse Oximetry 100 98 Oxygen Delivery Room Air Mechanical Ventilation Fraction of Inspired Oxygen 50 03/10/23 14:03 03/10/23 14:04 03/10/23 14:07 Temperature Pulse Rate 67 73 64 Respiratory Rate 19 16 18 Blood Pressure Pulse Oximetry Oxygen Delivery Fraction of Inspired Oxygen 03/10/23 14:14 03/10/23 14:00 03/10/23 14:22 Temperature 96.4 F L Pulse Rate 67 63 Respiratory Rate 18 20 Blood Pressure 93/59 L Pulse Oximetry 94 Oxygen Delivery Fraction of Inspired Oxygen 50 03/10/23 14:00 03/10/23 14:37 03/10/23 14:39 Temperature Pulse Rate 66 Respiratory Rate Blood Pressure Pulse Oximetry Oxygen Delivery Mechanical Ventilation Fraction of Inspired Oxygen 50 50 03/10/23 14:52 03/10/23 15:45 03/10/23 15:48 Temperature Pulse Rate 62 54 L 54 L Respiratory Rate 22 H 22 H 18 Blood Pressure Pulse Oximetry 98 Oxygen Delivery Mechanical Ventilation Fraction of Inspired Oxygen 50 03/10/23 15:54 03/10/23 15:55 03/10/23 16:00 Temperature Pulse Rate 50 L 50 L Respiratory Rate 20 20 Blood Pressure Pulse Oximetry Oxygen Delivery Fraction of Inspired Oxygen 50 03/10/23 16:00 03/10/23 16:00 03/10/23 16:13 Temperature 95.7 F L Pulse Rate 51 L 46 L 46 L Respiratory Rate 22 H 22 H Blood Pressure 92/55 L Pulse Oximetry 98 Oxygen Delivery Fraction of Inspired Oxygen 03/10/23 16:00 03/10/23 16:27 03/10/23 16:27 Temperature Pulse Rate 50 L 48 L 48 L Respiratory Rate 22 H 22 H 22 H Blood Pressure Pulse Oximetry Oxygen Delivery Fraction of Inspired Oxygen 03/10/23 16:38 03/10/23 16:39 03/10/23 16:49 Temperature P
[2023-03-11] MEDS: GABAPENTIN 400 MG CAPSULE 800 MG PO ×3 (08:21→17:19)
[2023-03-11] MEDS: BACLOFEN 10 MG TABLET PO ×3 (08:22→17:19)
[2023-03-11] MEDS: clonazePAM (*CRX) 0.5 MG TABLET PO ×2 (08:22→21:18)
[2023-03-11] MEDS: ATORVASTATIN 40 MG TABLET 80 MG PO (08:22)
[2023-03-11] MEDS: MINERAL OIL/WHITE PETROLATUM OINTMENT 1 APPLIC EACH EYE (08:22)
[2023-03-11] MEDS: PANTOPRAZOLE SODIUM IV 40 MG VIAL IV PUSH (08:22)
[2023-03-11] MEDS: PERFLUTREN LIPID MICROSPHERES 1.5 ML VIAL DILUTED TO 10 ML TOTAL VOLUME IV PUSH (10:05)
--- NOTE | 2023-03-11 11:13 | PCFNICU ---
ICU Rounding Note: Pt current nutrition is NPO. Last recorded weight is 127.1 kg. Bowel Motility:No BM reported. Labs Reviewed:PO4 5.4, Glu 123, GFR 51 Meds Noted:Protonix, Lipitor, Atrovent Skin: WNL Additional Notes: Patient current with mechanical vent. Sedation has been turned off at this time. Plans for extubation today. Following daily in ICU rounds.
--- NOTE | 2023-03-11 11:22 | IVDEFINITY ---
Prior to administration of IV Definity the patient was educated on the risks and benefits of the imaging enhancing agent including potential adverse side effects. The patient verbalized understanding. Allergies were verified. No exclusion criteria were identified and at least one of the following inclusion criteria were met: 1) physician request, 2) patient technically difficult to image (per the [place] [employer] guidelines of two or more segments not discernable within the apical view), or 3) questionable left ventricular function. ?
[2023-03-11 11:48] LABS: Alveolar/Arterial O2 Gradient 84.3 mmHg; Base Excess ABG -2.1 mEq/l (+/-2.0); Carboxyhemoglobin 0.3 % THb (0-2.0); Device VENTILATOR; Fractional Inspired Oxygen 40 %; HCO3 ABG 23.7 mEq/l (22.0-26.0); Methemoglobin ABG 0.2 %THb (0-1.5); Modified Allen's Test Pass; Oxygen Content ABG 17.4 %vol (16.0-22.0); Oxygen Saturation ABG 98.8 % (95.0-100.0); Oxyhemoglobin 97.7 % THb (90.0-100.0); PCO2 ABG 44.8 mmHg (35.0-45.0); PO2 ABG 149.4 mmHg (80.0-100.0); PO2 FiO2 Ratio Arterial Blood 3.73 %; Reduced Hemoglobin 1.8 %THb (0-5.0); Site Drawn LEFT RADIAL; Total Hemoglobin 12.5 g/dL (12.0-18.0); pH ABG 7.342 (7.350-7.450)
[2023-03-11 11:49] LABS: Arterial Blood Gas PEEP 5 cmH2O; Arterial Blood Gas Pressure Support 8 cmH2O; Arterial Blood Gas Vent Mode SPONTANEOUS
--- NOTE | 2023-03-11 12:15 | WPDINTPN ---
Progress Note: A&P Assessment and Plan (1) Atrial fibrillation status post cardioversion: Code(s): I48.91 - Unspecified atrial fibrillation Status: Acute Assessment and Plan: 03/10: Patient has a history of atrial fibrillation on Eliquis at home, low brought into the hospital as an outpatient for cardioversion. -DENVER was unsuccessful as a fuel cell repairer could not advance the DENVER probe. -patient was cardioverted successfully to sinus rhythm -during cardioversion patient was found to be hypoxic, post cardioversion, patient was found to be hypotensive and was given some IV fluids -while in the PACU patient agitated/anxious/panic attack and was intubated and transferred to the ICU -03/11: currently in sinus rhythm, rate controlled, will continue to monitor (2) Acute respiratory failure: Qualifiers: Respiratory failure complication: unspecified whether with hypoxia or hypercapnia Qualified Code(s): J96.00 - Acute respiratory failure, unspecified whether with hypoxia or hypercapnia Code(s): J96.00 - Acute respiratory failure, unspecified whether with hypoxia or hypercapnia Status: Acute Assessment and Plan: Patient had a questionable anxiety/panic attack, could be related to benzocaine, was intubated in the PACU -according the fuel cell repairer and cath laboratory technician RNs patient was hypoxic during the procedure -currently on CMV mode of ventilation up peep of 5 and 40% FiO2 -chest x-ray and ABG reviewed this morning -sedation has been discontinued -patient was placed on spontaneous breathing trial and was successfully extubated on 03/11/2023 03/10/2023: Chest CTA IMPRESSION: 1. Emphysema with mild atelectasis in bilateral lower lobes. No pulmonary embolism or other acute cardiopulmonary disease. Moderate-sized sliding-type hiatal hernia. (3) Hypotension: Qualifiers: Hypotension type: unspecified hypotension type Qualified Code(s): I95.9 - Hypotension, unspecified Code(s): I95.9 - Hypotension, unspecified Status: Acute Assessment and Plan: Improved with IV fluids Continue to monitor (4) Anxiety: Code(s): F41.9 - Anxiety disorder, unspecified Status: Acute Assessment and Plan: Patient on gabapentin, clonazepam at home, will continue (5) Hypercholesterolemia: Code(s): E78.00 - Pure hypercholesterolemia, unspecified Status: Acute Assessment and Plan: Continue atorvastatin (6) Tobacco abuse: Code(s): Z72.0 - Tobacco use Status: Acute Assessment and Plan: Patient has a history of tobacco use and takes marijuana gummies -once extubated will veterans rehabilitation counselor on cessation of smoking Plan DVT prophylaxis: Eliquis and 1 dose of therapeutic Lovenox Stress ulcer prophylaxis: Protonix Nutrition: Will start ice chips Code Status: Full code Critical Care Time Spent: 34 minutes Due to a high probability of clinically significant, life threatening deterioration, the patient required my highest level of preparedness to intervene emergently and I personally spent this critical care time directly and personally managing the patient. This critical care time included obtaining a history; examining the patient; pulse oximetry; ordering and review of studies; arranging urgent treatment with development of a management plan; evaluation of patient's response to treatment; frequent reassessment; and discussions with other providers. It was exclusive of separately billable procedures and treating other patients and teaching time. Please see Assessment and Plan section and the rest of the note for further information on patient assessment and treatment This dictation may have been done utilizing a voice recognition system. Attempts have been made to correct errors. However, there may be uncorrected grammatical, spelling, and recognitions errors present. Subjective Date/time seen: 03/11/23 12:15 Interval history: Reason for consult: Acu
--- NOTE | 2023-03-11 13:42 | WPDANESPN ---
Anes - Prog Note Post-Op Date/Time: 03/11/23 13:42 Cardiovascular status: normal Respiratory status: other (patient is intubated. She is not sedated and able to communicate with writing.) Airway patency: other (patient is intubated. she is on pressure support. the plan is to extubate her later today. ) Mental status: baseline Post-Op hydration status: normal Vital Signs: Last Vital Signs Temp 37.1 C 03/11/23 12:00 Pulse 65 03/11/23 12:00 Resp 18 03/11/23 12:00 BP 132/80 03/11/23 12:00 Pulse Ox 100 03/11/23 12:00 O2 Del Method Nasal Cannula 03/11/23 12:00 O2 Flow Rate 2 03/11/23 12:00 FiO2 40 03/11/23 10:23 Pain Score (VAS): 210 I/O: Intake & Output 03/10/23 03/11/23 03/11/23 23:59 07:59 15:59 Intake Total 25 Output Total 70 300 Balance -45 -300 Laboratory Tests 03/11/23 04:28 03/11/23 04:28 03/10/23 03/10/23 03/11/23 14:28 14:45 04:28 WBC 12.2 H 8.6 RBC 4.04 L 3.87 L Hgb 12.7 12.0 Hct 40.5 39.3 MCV 100.2 H 101.6 H MCH 31.4 31.0 MCHC 31.4 L 30.5 L RDW 13.9 13.8 Plt Count 207 199 MPV 10.0 10.1 Immature Gran % (Auto) 0.6 H 0.5 Neut % (Auto) 82.0 H 80.2 H Lymph % (Auto) 11.6 L 13.9 L [place] % (Auto) 4.4 5.1 Eos % (Auto) 1.2 0.2 Baso % (Auto) 0.2 0.1 L Lymph # (Auto) 1.41 1.19 [place] # (Auto) 0.5 0.4 Eos # (Auto) 0.1 0.0 Baso # (Auto) 0.0 0.0 Abs Immat Gran (auto) 0.07 H 0.04 H Absolute Neuts (auto) 10.0 H 6.9 H Absolute Nucleated RBC 0.0 0.0 Nucleated RBC % 0.0 0.0 PT 18.9 H INR 1.5 APTT 26.7 Puncture Site Right radial ABG pH 7.229 L* ABG pCO2 46.4 H ABG pO2 101.8 H ABG PO2/FiO2 Ratio 2.04 ABG HCO3 19.0 L ABG O2 Saturation 96.6 ABG O2 Content 18.0 ABG Base Excess -8.5 A-a Gradient 202.5 Oxyhemoglobin 94.7 Carboxyhemoglobin 1.1 Methemoglobin 0.2 Reduced Hemoglobin 4.0 Total Hemoglobin 13.4 O2 Delivery Device Ventilator O2 Liters/Min Not Reportable Minute Volume Not Reportable Vent Rate 20 Vent Mode Cmv FiO2 50 Tidal Volume 400 PEEP 8 Peak Inspir Pressure Not Reportable Pressure Support Not Reportable Sodium 139 140 Potassium 3.3 L 4.7 Chloride 111 H 108 H Carbon Dioxide 23 21 L Anion Gap 5 L 11 BUN 14 16 Creatinine 0.90 1.10 H Estim Creat Clear Calc 83 69 Estimated GFR > 60 51 L Glucose 144 H 123 H Lactic Acid 1.9 Calcium 7.7 L 7.9 L Phosphorus 5.4 H Magnesium 1.9 Total Bilirubin 0.7 0.7 AST 21 32 ALT 14 25 Alkaline Phosphatase 70 81 Total Protein 5.0 L 6.0 L Albumin 2.9 L 3.5 Triglycerides 131 TSH (Reflex) 0.809 03/11/23 03/11/23 05:32 11:46 WBC RBC Hgb Hct MCV MCH MCHC RDW Plt Count MPV Immature Gran % (Auto) Neut % (Auto) Lymph % (Auto) [place] % (Auto) Eos % (Auto) Baso % (Auto) Lymph # (Auto) [place] # (Auto) Eos # (Auto) Baso # (Auto) Abs Immat Gran (auto) Absolute Neuts (auto) Absolute Nucleated RBC Nucleated RBC % PT INR APTT Puncture Site Right radial Left radial ABG pH 7.368 7.342 L ABG pCO2 36.7 44.8 ABG pO2 151.2 H 149.4 H ABG PO2/FiO2 Ratio 3.78 3.73 ABG HCO3 20.6 L 23.7 ABG O2 Saturation 98.9 98.8 ABG O2 Content 18.0 17.4 ABG Base Excess -4.1 -2.1 A-a Gradient 91.8 84.3 Oxyhemoglobin 97.8 97.7 Carboxyhemoglobin 0.3 0.3 Methemoglobin 0.2 0.2 Reduced Hemoglobin 1.7 1.8 Total Hemoglobin 12.9 12.5 O2 Delivery Device Ventilator Ventilator O2 Liters/Min Not Reportable Not Reportable Minute Volume Not Reportable Not Reportable Vent Rate 22 Not Reportable Vent Mode Cmv Spontaneous FiO2 40 40 Tidal Volume 400 Not Reportable PEEP 8 5 Peak Inspir Pressure Not Reportable Not Reportable Pressure Support Not Reportable 8 Sodium Potassium Chloride Carbon Dioxide Anion Gap BUN
[2023-03-11] MEDS: VARENICLINE 1 MG TABLET PO (17:19)
[2023-03-11] MEDS: PREGABALIN (*CRX) 50 MG CAPSULE PO (17:19)
[2023-03-11] MEDS: APIXABAN 5 MG TABLET PO (21:18)
[2023-03-11] MEDS: AMITRIPTYLINE HCL 25 MG TABLET PO (21:55)
[2023-03-12] VITALS (23 sets, daily range): BP systolic 90–118; BP diastolic 58–74; PULSE 56–82; RESP 10–20; TEMP 36.1–37.1; O2SAT 90–100
[2023-03-12] MEDS: LEVALBUTEROL NEB 1.25 MG/3 ML 0.63 MG INHALATION ×4 (02:40→19:59)
[2023-03-12] MEDS: IPRATROPIUM BR 0.02% INH SOLN 0.5 MG/2.5 ML VIAL INHALATION ×4 (02:40→19:59)
[2023-03-12 04:32] LABS: Eosinophils Percent Auto 2.5 % (0-4.4); Hematocrit 30.9 % (37.0-47.0); Hemoglobin 9.6 g/dL (12.0-15.0); Immature Granulocyte Percent A 0.2 % (0-0.5); Lymphocytes Percent Auto 36.1 % (18.3-44.2); Mean Corpuscular HGB Conc 31.1 g/dl (32-36); Mean Corpuscular Hemoglobin 31.3 pg (26-34); Mean Corpuscular Volume 100.7 fl (80-100); Mean Platelet Volume 9.7 fl (7.4-10.4); Monocytes Percent Auto 5.8 % (2.6-8.5); Neutrophils Percent Auto 55.2 % (45.5-73.1); Platelet Count Result 140 k/mm3 (150-375); Red Blood Count 3.07 M/mm3 (4.2-5.4); White Blood Count 4.3 K/mm3 (4.5-10.0)
[2023-03-12 04:33] LABS: Basophils Percent Auto 0.2 % (0.2-1.2); Eosinophils Absolute Auto 0.1 K/mm3 (0-0.3); Immature Granulocyte Absolute 0.01 K/mm3 (0.00-0.031); Lymphocytes Absolute Auto 1.56 K/mm3 (0.9-3.2); Monocytes Absolute Auto 0.3 K/mm3 (0.1-0.6); Neutrophils Absolute Auto 2.4 K/mm3 (1.3-6.7)
[2023-03-12 04:46] LABS: Alanine Aminotransferase 19 U/L (6-35); Albumin Level 3.3 g/dL (3.5-5.1); Alkaline Phosphatase 69 U/L (38-126); Anion Gap 3 mmol/L (8-16); Aspartate Amino Transferase 24 U/L (14-36); Bilirubin,Total 0.8 mg/dL (0.2-1.3); Blood Urea Nitrogen 13 mg/dL (7-17); Calcium 8.1 mg/dL (8.4-10.2); Carbon Dioxide 28 mmol/L (22-30); Chloride 107 mmol/L (98-107); Estimated CRCL calculation 121 ml/min; Estimated Glomerular Filt Rate > 60; Glucose 94 mg/dL (65-110); Potassium 3.3 mmol/L (3.4-5.0); Sodium 138 mmol/L (137-145)
[2023-03-12] MEDS: LEVOTHYROXINE SODIUM 75 MCG TABLET PO (06:23)
--- NOTE | 2023-03-12 08:04 | PM.PNCARD ---
Progress Note: A&P Assessment and Plan (1) Persistent atrial fibrillation: Code(s): I48.19 - Other persistent atrial fibrillation Status: Acute Assessment and Plan: S/P Cardioversion back to Sinus rhythm. Was on Amiodarone 50 mg daily to maintain sinus rhythm. On Eliquis. Resume Amiodarone 50 mg daily. Discuss with patient if recurrence of atrial fibrillation, will rate control, and refer for ablation. (2) Acute respiratory failure: Qualifiers: Respiratory failure complication: unspecified whether with hypoxia or hypercapnia Qualified Code(s): J96.00 - Acute respiratory failure, unspecified whether with hypoxia or hypercapnia Code(s): J96.00 - Acute respiratory failure, unspecified whether with hypoxia or hypercapnia Status: Acute Assessment and Plan: Secondary to sedation for cardioversion. Was intubated on mechanical ventilation, then extubated. Marine Diver following. May go to medical floor for PT evaluation today. (3) Hypotension: Qualifiers: Hypotension type: unspecified hypotension type Qualified Code(s): I95.9 - Hypotension, unspecified Code(s): I95.9 - Hypotension, unspecified Status: Acute Assessment and Plan: Secondary to sedation for Cardioversion. She received IVF and BP stable now. (4) Tobacco abuse: Code(s): Z72.0 - Tobacco use Status: Acute Assessment and Plan: Counseled regarding smoking cessation. (5) Hypercholesterolemia: Code(s): E78.00 - Pure hypercholesterolemia, unspecified Status: Acute Assessment and Plan: On Atorvastatin. Subjective Date/time seen: 03/12/23 08:04 Interval history: Patient was extubated on 03/11/23. No chest pain or sob. Feels weak. Exam Const: General: cooperative, healthy appearing and comfortable Orientation/consciousness: confusion Resp: Auscultation: clear to auscultation bilaterally, no crackles, no rales, no rhonchi and no wheezes Cardio: Rate: regular rate Rhythm: regular rhythm Heart sounds: no murmurs Peripheral pulses: dorsalis pedis present Neuro: General: confusion Extrem: Right lower extremity: no edema Left lower extremity: no edema Objective Data Vital Signs Vital Signs: Vital Signs - 24 hr 03/11/23 08:14 03/11/23 08:14 03/11/23 08:18 Temperature Pulse Rate 57 L 57 L 88 Respiratory Rate 17 19 Blood Pressure Pulse Oximetry 99 Oxygen Delivery Mechanical Ventilation Oxygen Flow Rate Fraction of Inspired Oxygen 40 03/11/23 08:32 03/11/23 08:52 03/11/23 10:00 Temperature Pulse Rate 71 66 62 Respiratory Rate 14 Blood Pressure Pulse Oximetry 98 Oxygen Delivery Mechanical Ventilation Oxygen Flow Rate Fraction of Inspired Oxygen 40 03/11/23 10:00 03/11/23 10:23 03/11/23 12:00 Temperature Pulse Rate 64 62 65 Respiratory Rate 18 Blood Pressure 123/74 Pulse Oximetry 94 99 Oxygen Delivery Mechanical Ventilation Oxygen Flow Rate Fraction of Inspired Oxygen 40 03/11/23 12:00 03/11/23 12:00 03/11/23 14:01 Temperature 98.8 F Pulse Rate 65 65 64 Respiratory Rate 18 18 14 Blood Pressure 132/80 Pulse Oximetry 100 100 Oxygen Delivery Nasal Cannula Oxygen Flow Rate 2 Fraction of Inspired Oxygen 03/11/23 11:00 03/11/23 14:00 03/11/23 14:00 Temperature Pulse Rate 61 64 62 Respiratory Rate 16 Blood Pressure 126/76 Pulse Oximetry 99 99 Oxygen Delivery Mechanical Ventilation Oxygen Flow Rate Fraction of Inspired Oxygen 40 03/11/23 14:24 03/11/23 11:53 03/11/23 14:46 Temperature Pulse Rate 78 Respiratory Rate 14 Blood Pressure Pulse Oximetry 100 94 Oxygen Delivery Nasal Cannula Room Air Oxygen Flow Rate 4 Fraction of Inspired Oxygen 36 21 03/11/23 16:00 03/11/23 16:00 03/11/23 16:00 Temperature 98.6 F Pulse Rate 72 72 72 Respiratory Rate 16 16 Blood Pressure 107/69 Pulse Oximetry 93 93 Oxyge
[2023-03-12] MEDS: POTASSIUM CHLORIDE 20 MEQ PACKET (FOR LIQUID) 40 MEQ PO (09:03)
[2023-03-12] MEDS: MINERAL OIL/WHITE PETROLATUM OINTMENT 1 APPLIC EACH EYE (09:04)
[2023-03-12] MEDS: PREGABALIN (*CRX) 50 MG CAPSULE PO ×2 (09:04→18:11)
[2023-03-12] MEDS: VARENICLINE 1 MG TABLET PO ×2 (09:04→20:41)
[2023-03-12] MEDS: clonazePAM (*CRX) 0.5 MG TABLET PO ×2 (09:04→20:42)
[2023-03-12] MEDS: APIXABAN 5 MG TABLET PO ×2 (09:04→20:42)
[2023-03-12] MEDS: ATORVASTATIN 40 MG TABLET 80 MG PO (09:04)
[2023-03-12] MEDS: busPIRone HCL 10 MG TABLET PO (09:04)
[2023-03-12] MEDS: GABAPENTIN 400 MG CAPSULE 800 MG PO ×3 (09:04→18:10)
[2023-03-12] MEDS: BACLOFEN 10 MG TABLET PO ×3 (09:04→18:10)
[2023-03-12] MEDS: AMIODARONE HCL 50 MG TABLET PO (09:07)
[2023-03-12] MEDS: PANTOPRAZOLE SODIUM IV 40 MG VIAL IV PUSH (09:07)
--- NOTE | 2023-03-12 11:01 | PCDIET ---
Diet order has advanced to a heart healthy diet, oral intake was about 50% of meal for breakfast. She is now medical status. No further nutritional needs.
--- NOTE | 2023-03-12 12:24 | WPDINTPN ---
Progress Note: A&P Assessment and Plan (1) Atrial fibrillation status post cardioversion: Code(s): I48.91 - Unspecified atrial fibrillation Status: Acute Assessment and Plan: 03/10: Patient has a history of atrial fibrillation on Eliquis at home, low brought into the hospital as an outpatient for cardioversion. -DENVER was unsuccessful as a qa reviewer could not advance the DENVER probe. -patient was cardioverted successfully to sinus rhythm -during cardioversion patient was found to be hypoxic, post cardioversion, patient was found to be hypotensive and was given some IV fluids -while in the PACU patient agitated/anxious/panic attack and was intubated and transferred to the ICU -03/11: currently in sinus rhythm, rate controlled, will continue to monitor -discussed with Cardiology, they will add small dose of amiodarone (2) Acute respiratory failure: Qualifiers: Respiratory failure complication: unspecified whether with hypoxia or hypercapnia Qualified Code(s): J96.00 - Acute respiratory failure, unspecified whether with hypoxia or hypercapnia Code(s): J96.00 - Acute respiratory failure, unspecified whether with hypoxia or hypercapnia Status: Acute Assessment and Plan: Patient had a questionable anxiety/panic attack, could be related to benzocaine, was intubated in the PACU -according the qa reviewer and dairy lab technician RNs patient was hypoxic during the procedure -currently on CMV mode of ventilation up peep of 5 and 40% FiO2 -chest x-ray and ABG reviewed this morning -patient extubated on 03/11/2023 -currently on room air -will have PT/OT following the patient 03/10/2023: Chest CTA IMPRESSION: 1. Emphysema with mild atelectasis in bilateral lower lobes. No pulmonary embolism or other acute cardiopulmonary disease. Moderate-sized sliding-type hiatal hernia. (3) Hypotension: Qualifiers: Hypotension type: unspecified hypotension type Qualified Code(s): I95.9 - Hypotension, unspecified Code(s): I95.9 - Hypotension, unspecified Status: Acute Assessment and Plan: Improved with IV fluids Continue to monitor (4) Anxiety: Code(s): F41.9 - Anxiety disorder, unspecified Status: Acute Assessment and Plan: Patient on gabapentin, clonazepam at home, will continue (5) Hypercholesterolemia: Code(s): E78.00 - Pure hypercholesterolemia, unspecified Status: Acute Assessment and Plan: Continue atorvastatin (6) Tobacco abuse: Code(s): Z72.0 - Tobacco use Status: Acute Assessment and Plan: Patient has a history of tobacco use and takes marijuana gummies -have counseled patient on cessation of tobacco smoking and cessation of marijuana gummies to which she is agreeable Plan DVT prophylaxis: Eliquis Stress ulcer prophylaxis: Protonix Nutrition: Heart healthy diet Code Status: Full code Critical Care Time Spent: 32 minutes Discussed with cardiology patient will be transferred out of the ICU Due to a high probability of clinically significant, life threatening deterioration, the patient required my highest level of preparedness to intervene emergently and I personally spent this critical care time directly and personally managing the patient. This critical care time included obtaining a history; examining the patient; pulse oximetry; ordering and review of studies; arranging urgent treatment with development of a management plan; evaluation of patient's response to treatment; frequent reassessment; and discussions with other providers. It was exclusive of separately billable procedures and treating other patients and teaching time. Please see Assessment and Plan section and the rest of the note for further information on patient assessment and treatment This dictation may have been done utilizing a voice recognition system. Attempts have been made to correct errors. However, there may be uncorrected grammatical, s
[2023-03-12] MEDS: ONDANSETRON INJ 4 MG/2 ML VIAL IV PUSH (13:11)
--- NOTE | 2023-03-12 14:18 | PC.NURSE ---
This patient, Courtney Soriano, was transferred to [facility] on 03/12/23 at 1410. Personal belongings sent with patient. Report given to Eliud. Appropriate documentation sent with patient.
--- NOTE | 2023-03-12 16:38 | PC.NURSE ---
On 03/12/23, the student, Karly [facility], provided care and completed [facility] documentation on this patient. I have reviewed the student's documentation and agree with the findings.
[2023-03-12] MEDS: HYDROcodone/acetaminophen (*CRX) 5-325 MG TABLET 1 TAB PO (18:49)
[2023-03-12] MEDS: AMITRIPTYLINE HCL 25 MG TABLET PO (20:42)
[2023-03-13] VITALS (9 sets, daily range): BP systolic 110–124; BP diastolic 62–83; PULSE 53–66; RESP 16–20; TEMP 36.4–36.7; O2SAT 95–100
[2023-03-13] MEDS: IPRATROPIUM BR 0.02% INH SOLN 0.5 MG/2.5 ML VIAL INHALATION ×3 (02:07→13:17)
[2023-03-13] MEDS: LEVALBUTEROL NEB 1.25 MG/3 ML 0.63 MG INHALATION ×3 (02:07→13:17)
[2023-03-13] MEDS: LEVOTHYROXINE SODIUM 75 MCG TABLET PO (06:17)
[2023-03-13] MEDS: HYDROcodone/acetaminophen (*CRX) 5-325 MG TABLET 1 TAB PO (06:38)
[2023-03-13 07:58] LABS: Basophils Percent Auto 0.7 % (0.2-1.2); Eosinophils Absolute Auto 0.2 K/mm3 (0-0.3); Eosinophils Percent Auto 3.7 % (0-4.4); Hematocrit 32.3 % (37.0-47.0); Hemoglobin 9.8 g/dL (12.0-15.0); Immature Granulocyte Absolute 0.05 K/mm3 (0.00-0.031); Immature Granulocyte Percent A 1.2 % (0-0.5); Lymphocytes Absolute Auto 1.38 K/mm3 (0.9-3.2); Lymphocytes Percent Auto 34.3 % (18.3-44.2); Mean Corpuscular HGB Conc 30.3 g/dl (32-36); Mean Corpuscular Volume 102.2 fl (80-100); Mean Platelet Volume 9.7 fl (7.4-10.4); Monocytes Absolute Auto 0.2 K/mm3 (0.1-0.6); Monocytes Percent Auto 5.5 % (2.6-8.5); Neutrophils Absolute Auto 2.2 K/mm3 (1.3-6.7); Neutrophils Percent Auto 54.6 % (45.5-73.1); Platelet Count Result 143 k/mm3 (150-375); Red Blood Count 3.16 M/mm3 (4.2-5.4); Red Cell Distribution Width 14.1 % (11.5-14.5)
--- NOTE | 2023-03-13 08:02 | PM.PNCARD ---
Progress Note: A&P Assessment and Plan (1) Persistent atrial fibrillation: Code(s): I48.19 - Other persistent atrial fibrillation Status: Acute Assessment and Plan: S/P Cardioversion back to Sinus rhythm. Was on Amiodarone 50 mg daily to maintain sinus rhythm. On Eliquis. Resumed Amiodarone 50 mg daily. Discuss with patient if recurrence of atrial fibrillation, will rate control, and refer for ablation. (2) Acute respiratory failure: Qualifiers: Respiratory failure complication: unspecified whether with hypoxia or hypercapnia Qualified Code(s): J96.00 - Acute respiratory failure, unspecified whether with hypoxia or hypercapnia Code(s): J96.00 - Acute respiratory failure, unspecified whether with hypoxia or hypercapnia Status: Acute Assessment and Plan: Secondary to sedation for cardioversion. Was intubated on mechanical ventilation, then extubated. Protective Signal Installer Helper following. PT/OT to work with patient. Check labs today, if OK, then may d/c home to f/u with me in 1 week. (3) Hypotension: Qualifiers: Hypotension type: unspecified hypotension type Qualified Code(s): I95.9 - Hypotension, unspecified Code(s): I95.9 - Hypotension, unspecified Status: Acute Assessment and Plan: Secondary to sedation for Cardioversion. She received IVF and BP stable now. (4) Tobacco abuse: Code(s): Z72.0 - Tobacco use Status: Acute Assessment and Plan: Counseled regarding smoking cessation. (5) Hypercholesterolemia: Code(s): E78.00 - Pure hypercholesterolemia, unspecified Status: Acute Assessment and Plan: On Atorvastatin. Subjective Date/time seen: 03/13/23 08:02 Interval history: Patient was extubated on 03/11/23. No chest pain or sob. Has headache. Was up in chair for 2 hours yesterday and did well. Exam Const: General: cooperative, healthy appearing, comfortable, no acute distress, acute distress, anxious and confusion Orientation/consciousness: confusion Resp: Auscultation: clear to auscultation bilaterally, no crackles, no rales, no rhonchi and no wheezes Cardio: Rate: regular rate Rhythm: regular rhythm Heart sounds: no murmurs Peripheral pulses: dorsalis pedis present Neuro: General: confusion Extrem: Right lower extremity: no edema Left lower extremity: no edema Objective Data Vital Signs Vital Signs: Vital Signs - 24 hr 03/12/23 08:14 03/12/23 09:07 03/12/23 10:00 Temperature Pulse Rate 68 70 68 Respiratory Rate 15 Blood Pressure Pulse Oximetry Oxygen Delivery Fraction of Inspired Oxygen 03/12/23 12:00 03/12/23 12:00 03/12/23 14:00 Temperature 98.8 F Pulse Rate 65 65 69 Respiratory Rate 14 Blood Pressure 106/64 Pulse Oximetry 90 Oxygen Delivery Fraction of Inspired Oxygen 03/12/23 14:31 03/12/23 14:31 03/12/23 14:46 Temperature Pulse Rate 56 L 59 L Respiratory Rate 20 20 Blood Pressure Pulse Oximetry 96 Oxygen Delivery Room Air Fraction of Inspired Oxygen 03/12/23 16:00 03/12/23 14:30 03/12/23 16:00 Temperature 97.7 F Pulse Rate 57 L 59 L 60 Respiratory Rate 18 Blood Pressure 113/60 Pulse Oximetry 97 Oxygen Delivery Fraction of Inspired Oxygen 03/12/23 18:00 03/12/23 20:01 03/12/23 20:01 Temperature Pulse Rate 63 64 Respiratory Rate 20 Blood Pressure Pulse Oximetry 96 Oxygen Delivery Room Air Fraction of Inspired Oxygen 03/12/23 20:00 03/12/23 20:00 03/12/23 20:00 Temperature 97.0 F L Pulse Rate 66 68 68 Respiratory Rate 18 20 Blood Pressure 90/67 L Pulse Oximetry 100 96 Oxygen Delivery Room Air Fraction of Inspired Oxygen 21 03/12/23 21:10 03/12/23 23:18 03/13/23 02:08 Temperature Pulse Rate 70 68 63 Respiratory Rate 20 Blood Pressure Pulse Oximetry Oxygen Delivery Fraction of Inspired Oxygen 03/12/23 20:50 03/13/23 04:00 03/13
[2023-03-13 08:11] LABS: Alanine Aminotransferase 18 U/L (6-35); Albumin Level 3.6 g/dL (3.5-5.1); Alkaline Phosphatase 70 U/L (38-126); Anion Gap 5 mmol/L (8-16); Aspartate Amino Transferase 24 U/L (14-36); Bilirubin,Total 0.8 mg/dL (0.2-1.3); Blood Urea Nitrogen 10 mg/dL (7-17); Calcium 8.5 mg/dL (8.4-10.2); Carbon Dioxide 29 mmol/L (22-30); Chloride 105 mmol/L (98-107); Estimated CRCL calculation 121 ml/min; Estimated Glomerular Filt Rate > 60; Glucose 95 mg/dL (65-110); Potassium 4.3 mmol/L (3.4-5.0); Sodium 139 mmol/L (137-145)
[2023-03-13] MEDS: PREGABALIN (*CRX) 50 MG CAPSULE PO (09:34)
[2023-03-13] MEDS: BACLOFEN 10 MG TABLET PO (09:34)
[2023-03-13] MEDS: VARENICLINE 1 MG TABLET PO (09:34)
[2023-03-13] MEDS: ATORVASTATIN 40 MG TABLET 80 MG PO (09:34)
[2023-03-13] MEDS: APIXABAN 5 MG TABLET PO (09:34)
[2023-03-13] MEDS: busPIRone HCL 10 MG TABLET PO (09:34)
[2023-03-13] MEDS: GABAPENTIN 400 MG CAPSULE 800 MG PO (09:34)
[2023-03-13] MEDS: clonazePAM (*CRX) 0.5 MG TABLET PO (09:35)
[2023-03-13] MEDS: PANTOPRAZOLE SODIUM IV 40 MG VIAL IV PUSH (09:36)
[2023-03-13] MEDS: AMIODARONE HCL 50 MG TABLET PO (10:04)
--- NOTE | 2023-03-13 11:49 | PM.DS ---
DS: Admitting Diagnosis Discharge Date March 13, 2023 Admitting Diagnosis AFib DS: Discharge Diagnosis Discharge Diagnosis (1) Atrial fibrillation status post cardioversion: Code(s): I48.91 - Unspecified atrial fibrillation Status: Acute Assessment and Plan: 03/10: Patient has a history of atrial fibrillation on Eliquis at home, low brought into the hospital as an outpatient for cardioversion. -DENVER was unsuccessful as a naphthalene operator could not advance the DENVER probe. -patient was cardioverted successfully to sinus rhythm -during cardioversion patient was found to be hypoxic, post cardioversion, patient was found to be hypotensive and was given some IV fluids -while in the PACU patient agitated/anxious/panic attack and was intubated and transferred to the ICU -03/11: currently in sinus rhythm, rate controlled, will continue to monitor -discussed with Cardiology, they will add small dose of amiodarone (2) Acute respiratory failure: Qualifiers: Respiratory failure complication: unspecified whether with hypoxia or hypercapnia Qualified Code(s): J96.00 - Acute respiratory failure, unspecified whether with hypoxia or hypercapnia Code(s): J96.00 - Acute respiratory failure, unspecified whether with hypoxia or hypercapnia Status: Acute Assessment and Plan: Patient had a questionable anxiety/panic attack, could be related to benzocaine, was intubated in the PACU -according the naphthalene operator and microbiology laboratory manager RNs patient was hypoxic during the procedure -currently on CMV mode of ventilation up peep of 5 and 40% FiO2 -chest x-ray and ABG reviewed this morning -patient extubated on 03/11/2023 -currently on room air -will have PT/OT following the patient 03/10/2023: Chest CTA IMPRESSION: 1. Emphysema with mild atelectasis in bilateral lower lobes. No pulmonary embolism or other acute cardiopulmonary disease. Moderate-sized sliding-type hiatal hernia. (3) Hypotension: Qualifiers: Hypotension type: unspecified hypotension type Qualified Code(s): I95.9 - Hypotension, unspecified Code(s): I95.9 - Hypotension, unspecified Status: Acute Assessment and Plan: Improved with IV fluids Continue to monitor (4) Anxiety: Code(s): F41.9 - Anxiety disorder, unspecified Status: Acute Assessment and Plan: Patient on gabapentin, clonazepam at home, will continue (5) Hypercholesterolemia: Code(s): E78.00 - Pure hypercholesterolemia, unspecified Status: Acute Assessment and Plan: Continue atorvastatin (6) Tobacco abuse: Code(s): Z72.0 - Tobacco use Status: Acute Assessment and Plan: Patient has a history of tobacco use and takes marijuana gummies -have counseled patient on cessation of tobacco smoking and cessation of marijuana gummies to which she is agreeable Plan DVT prophylaxis: Eliquis Stress ulcer prophylaxis: Protonix Nutrition: Heart healthy diet Code Status: Full code Critical Care Time Spent: 32 minutes Discussed with cardiology patient will be transferred out of the ICU Due to a high probability of clinically significant, life threatening deterioration, the patient required my highest level of preparedness to intervene emergently and I personally spent this critical care time directly and personally managing the patient. This critical care time included obtaining a history; examining the patient; pulse oximetry; ordering and review of studies; arranging urgent treatment with development of a management plan; evaluation of patient's response to treatment; frequent reassessment; and discussions with other providers. It was exclusive of separately billable procedures and treating other patients and teaching time. Please see Assessment and Plan section and the rest of the note for further information on patient assessment and treatment This dictation may have been done utilizing a voice recognition syste
== END 2023-03-13 13:34 | disposition home or self-care (01) | DRG 308 ==
LOC: ANHICU 13:54 → ANHIMU 03-12 14:07
PROVIDERS: Internal Medicine; Physician Assistant; Admitting Provider Internal Medicine Cardiovascular Disease; Visit Provider Chiropractor
PROC: 5A2204Z Restoration of Cardiac Rhythm, Single (ICD-10-PCS; CPT 93312; principal; 2023-03-10 12:00)
PROC: 5A2204Z Restoration of Cardiac Rhythm, Single (ICD-10-PCS; 2023-03-10 12:00)
DX: I48.19 Other persistent atrial fibrillation (principal); J96.01 Acute respiratory failure with hypoxia; Z68.42 Body mass index [BMI] 45.0-49.9, adult; I50.32 Chronic diastolic (congestive) heart failure; T42.75XA Adverse effect of unspecified antiepileptic and sedative-hypnotic drugs, initial encounter; I95.81 Postprocedural hypotension; I69.322 Dysarthria following cerebral infarction; I69.311 Memory deficit following cerebral infarction; E78.00 Pure hypercholesterolemia, unspecified; E66.01 Morbid (severe) obesity due to excess calories; E03.9 Hypothyroidism, unspecified; F17.210 Nicotine dependence, cigarettes, uncomplicated; F41.0 Panic disorder [episodic paroxysmal anxiety]; F12.90 Cannabis use, unspecified, uncomplicated; F41.8 Other specified anxiety disorders; I11.0 Hypertensive heart disease with heart failure; M81.0 Age-related osteoporosis without current pathological fracture; J43.9 Emphysema, unspecified; Z86.718 Personal history of other venous thrombosis and embolism; Z90.710 Acquired absence of both cervix and uterus; Z86.711 Personal history of pulmonary embolism; Z86.16 Personal history of COVID-19; Z79.01 Long term (current) use of anticoagulants; Z90.49 Acquired absence of other specified parts of digestive tract
CPT/HCPCS: 31500; 36415; 36600; 71045; 71275; 80048; 80053; 82375; 82805; 83050; 83605; 83735; 84100; 84443; 84478; 85025; 85610; 85730; 92960; 93005; 93306; 93312; 93320; 93325; 94002; 94640; 97161; A9270; C8929; C9113; J1650; J2250; J2270; J2405; J2704; J3010; J7040; Q9957; Q9967

== ENCOUNTER 2023-03-17 11:18 | Outpatient (CLI) | payer OTHER, SELFPAY ==
--- NOTE | 2023-03-17 11:31 | ECG_ITS ---
Measurements Intervals [place] Rate: 42 P: -9 FL: 182 QRS: 76 QRSD: 85 T: 57 QT: 486 QTc: 409 Interpretive Statements SINUS BRADYCARDIA LOW QRS VOLTAGE IN PRECORDIAL LEADS BORDERLINE T WAVE ABNORMALITY- ANTERIOR LEADS ABNORMAL ECG COMPARED TO ECG 03/11/2023 12:07:13 SINUS BRADYCARDIA NOW PRESENT Electronically Signed On 03-17-2023 12:01:17 CDT by Milan Lopez D.O.
== END 2023-03-17 11:19 | disposition home or self-care (01) ==
PROVIDERS: Visit Provider Internal Medicine Cardiovascular Disease
DX: I48.19 Other persistent atrial fibrillation (principal); R94.31 Abnormal electrocardiogram [ECG] [EKG]; R00.1 Bradycardia, unspecified
CPT/HCPCS: 93005

== ENCOUNTER 2023-08-31 15:55 | Outpatient (CLI) | payer OTHER, SELFPAY ==
--- NOTE | 2023-08-31 16:03 | ECG_ITS ---
Measurements Intervals [place] Rate: 96 P: PA: 0 QRS: 76 QRSD: 90 T: 48 QT: 353 QTc: 447 Interpretive Statements ATRIAL FIBRILLATION LOW-VOLTAGE QRS ABNORMAL RHYTHM ECG COMPARED TO ECG 03/17/2023 11:43:47 ATRIAL FIBRILLATION REPLACES SINUS BRADYCARDIA Electronically Signed On 08-31-2023 18:45:52 MAILING MACHINE OPERATOR by Kel Ryan M.D.
== END 2023-08-31 15:56 | disposition home or self-care (01) ==
PROVIDERS: Visit Provider Internal Medicine Cardiovascular Disease
DX: I48.91 Unspecified atrial fibrillation (principal); R94.31 Abnormal electrocardiogram [ECG] [EKG]
CPT/HCPCS: 93005